=== PATIENT | female | born 1980 | race Caucasian/White ===

== ENCOUNTER 2017-04-20 07:52 | Emergency (ER) | payer SELFPAY ==
[~2017-04-20] VITALS: Ht 177.8 cm; Wt 145.1 kg
[~2017-04-20 07:52] MED LIST: CITA20TA9 PO; DICY20TA30 PO; HYDR-971 PO; IBUP200T43 PO; LAMO150T3 PO; LEVO50TA PO; LORA5SOL49 PO; MESA0.372 PO; OMEP20CA5 PO; OXCA300T3 PO; OXYC1TAB8 PO; PHEN37.599 PO; PREG75CA PO; TIZA4TAB PO; flexeril; hctz; methadone PO; triliptal
[2017-04-20 08:36] LABS: BACTERIA,URINE FEW /HPF (0-FEW); BILIRUBIN,URINE NEG (NEG); CLARITY,URINE CLOUDY; COLOR,URINE YELLOW; GLUCOSE,URINE NEG (NEG); NITRITE,URINE NEG (NEG); RBC,URINE 0 /HPF (0-2); UROBILINOGEN,URINE 0.2 mg/dL (0.2 mg/dL)
[2017-04-20 08:37] LABS: SQUAMOUS EPITHELIAL CELL,UR MOD /LPF
--- NOTE | 2017-04-20 08:37 | PHYS DOC ---
Past History Past Medical History: Arthritis, Bipolar, Fibromyalgia, Hypertension, Hypothyroid, P.U.D Additional Past Medical Histor: Umbilical hernia-(07/16/2013.) Cartilage removed from L Knee -02/2006. Past Surgical History: Cholecystectomy, Tonsillectomy, Other Additional Past Surgical Histo: Umbilical hernia repair 07/16/2013. Smoking: Quit Greater Than 1 Year Alcohol Use: Rarely Drug Use: None Adult General Chief Complaint Chief Complaint: PAIN ON URINATION HPI HPI Patient is a 36 year old F who presents with urinary frequency and mild lower abdominal discomfort. She states that her symptoms started about 4 weeks ago. She did take a few days of an antibiotic she had left over, she believes it was Cipro. She feels that this did improve her symptoms mildly however they returned. She states the her lower abdominal discomfort is a burning that seems to be present mostly on the outside. She feels that her symptoms are better after she urinates. She denies discharge for rash. She does have a history of GI related problems for which she has been followed by a seam checker. She did have a colonoscopy recently which revealed diverticula. Review of Systems Review of Systems Constitutional: Denies fever or chills [] Eyes: Denies change in visual acuity, redness, or eye pain [] HENT: Denies nasal congestion or sore throat [] Respiratory: Denies cough or shortness of breath [] Cardiovascular: No additional information not addressed in HPI [] GI: Denies abdominal pain, nausea, vomiting, bloody stools or diarrhea [] no focal abdominal pain. : Negative except history of present illness Musculoskeletal: Denies back pain or joint pain [] Integument: Denies rash or skin lesions [] Neurologic: Denies headache, focal weakness or sensory changes [] Endocrine: Denies polyuria or polydipsia [] Family History Family History Noncontributory Current Medications Current Medications Medications reviewed Allergies Allergies Allergies Coded Allergies Type Severity Reaction Last Updated Verified clarithromycin Allergy Mild rash 03/09/15 Yes latex Allergy Mild rash 03/09/15 Yes sulfamethoxazole Allergy Mild rash 03/09/15 Yes tobramycin Allergy Mild unknown 03/09/15 Yes trimethoprim Allergy Mild rash 03/09/15 Yes promethazine HCl Adverse Reaction Mild nausea/vomiting 03/09/15 Yes NSAIDS (Non-Steroidal Anti-Inflamma Adverse Reaction Unknown 12/01/15 Yes Physical Exam Physical Exam Constitutional: Well developed, well nourished, no acute distress, non-toxic appearance. [] HENT: Normocephalic, atraumatic, bilateral external ears normal, oropharynx moist, no oral exudates, Eyes: PERRLA, EOMI, conjunctiva normal, no discharge. [] Neck: Normal range of motion, no tenderness, supple, no stridor. [] Cardiovascular:Heart rate regular rhythm, no murmur [] Lungs & Thorax: Bilateral breath sounds clear to auscultation [] Abdomen: Bowel sounds normal, soft, no masses, no pulsatile masses. [] No abdominal pain with deep palpation Skin: Warm, dry, no erythema, no rash. [] Extremities: No tenderness, no cyanosis, no clubbing, ROM intact, no edema. [] Neurologic: Alert and oriented X 3, normal motor function, normal sensory function, no focal deficits noted. [] Psychologic: Affect normal, judgement normal, mood normal. [] Current Patient Data Vital Signs Normal vital signs. Please refer to nursing documentation Course & Med Decision Making Course & Med Decision Making Pertinent Labs and Imaging studies reviewed. (See chart for details) Labs and imaging were declined. The risk of abscess or other medical condition that would be identified using labs and imaging was discussed. Risk of and /or permanent disability was discussed. Belia verbalized understanding of these risks and continued to decline further testing. Interaction of Cipro and levothyroxine was discussed with pharmacist and considered to be a minimal risk. The treatment was considered to be necessary as the most likely diagnosis is diverticulitis. Dragon Disclaimer Dragon Disclaimer This chart was dictated in whole or in part using Voice Recognition software in a busy, high-work load, and often noisy Emergency Department environment. It may contain unintended and wholly unrecognized errors or omissions. Departure Departure: Impression: Primary Impression: Diverticulitis Disposition: 01 HOME, SELF-CARE Condition: STABLE Referrals: ALEJANDRA STRINGER MD (PCP) Patient Instructions: Diverticulitis Additional Instructions: Belia was seen in the emergency room for urinary frequency and lower abdominal discomfort. No emergency medical condition was found on history or physical exam. Her symptoms are most consistent with diverticulitis, given her history of diverticulosis. She was started on oral antibiotics and advised to return to the emergency room as soon as possible if she develops new or worsening symptoms. She was advised to follow-up with her primary care doctor or GI doctor in the next 7-10 days for further management Scripts Metronidazole (FLAGYL) 500 Mg Tablet 500 MG PO Q8HRS for 7 Days, #21 TAB Prov: GURMEET MURRELL MD 04/20/17 Ciprofloxacin Hcl (CIPRO) 500 Mg Tablet 1 TAB PO BID for 7 Days, #14 TAB Prov: GURMEET MURRELL MD 04/20/17 Problem Qualifiers Primary Impression: Diverticulitis Diverticulitis site: unspecified part of intestinal tract Diverticulitis bleeding: without bleeding Diverticulitis complication: unspecified complication status Qualified Codes: K57.92 - Diverticulitis of intestine, part unspecified, without perforation or abscess without bleeding GURMEET MURRELL MD Apr 20, 2017 08:37
[2017-04-20] MEDS ORDERED: CIPR500T94 PO (09:06)
[2017-04-20] MEDS ORDERED: METR500T PO (09:06)
[2017-04-20 09:28] VITALS: BP 173/106
[2017-04-20] MEDS ORDERED: CIPROFLOXACIN HCL 500 MG TABLET PO ONE (09:30)
[2017-04-20] MEDS ORDERED: metroNIDAZOLE 500 MG TABLET PO ONE (09:30)
== END 2017-04-20 09:32 | disposition home or self-care (01) ==
LOC: ER 07:52
DX: K57.92 Diverticulitis of intestine, part unspecified, without perforation or abscess without bleeding (principal); E03.9 Hypothyroidism, unspecified; I10 Essential (primary) hypertension; M79.7 Fibromyalgia; Z87.11 Personal history of peptic ulcer disease; Z90.49 Acquired absence of other specified parts of digestive tract; Z87.891 Personal history of nicotine dependence; Z88.8 Allergy status to other drugs, medicaments and biological substances; Z88.6 Allergy status to analgesic agent; Z88.1 Allergy status to other antibiotic agents; Z91.040 Latex allergy status
CPT/HCPCS: 81001; 81025; 87086; 99284

== ENCOUNTER 2017-05-03 10:52 | Emergency (ER) | payer SELFPAY ==
[~2017-05-03] VITALS: Ht 175.3 cm; Wt 90.7 kg
[~2017-05-03 10:52] MED LIST changes: +CIPR500T94 PO; +METR500T PO
[2017-05-03 11:40] LABS: BACTERIA,URINE 0 /HPF (0-FEW); BILIRUBIN,URINE NEG (NEG); CLARITY,URINE CLEAR; COLOR,URINE YELLOW; GLUCOSE,URINE NEG (NEG); NITRITE,URINE NEG (NEG); RBC,URINE RARE /HPF (0-2); SQUAMOUS EPITHELIAL CELL,UR FEW /LPF; UROBILINOGEN,URINE 0.2 mg/dL (0.2 mg/dL); WBC,URINE RARE /HPF (0-4)
[2017-05-03 12:24] LABS: BASO # 0.1 x10^3/uL (0.0-0.2); BASO % 1 % (0-3); EOS # 0.2 x10^3/uL (0.0-0.7); EOS % 2 % (0-3); HEMATOCRIT 44.3 % (36.0-47.0); HEMOGLOBIN 14.9 g/dL (12.0-15.5); LYMPH # 2.1 x10^3/uL (1.0-4.8); LYMPH % 25 % (24-48); MEAN CORPUSCULAR HEMOGLOBIN 29 pg (25-35); MEAN CORPUSCULAR HGB CONC 34 g/dL (31-37); MEAN CORPUSCULAR VOLUME 87 fL (79-100); MONO # 0.3 x10^3/uL (0.0-1.1); MONO % 4 % (0-9); NEUT % 69 % (31-73); PLATELET COUNT 202 x10^3/uL (140-400); RED BLOOD COUNT 5.08 x10^6/uL (3.50-5.40); RED CELL DISTRIBUTION WIDTH 14.7 % (11.5-14.5); WHITE BLOOD COUNT 8.7 x10^3/uL (4.0-11.0)
[2017-05-03 12:33] LABS: C REACTIVE PROTEIN 19.3 mg/L (0-3.3); CALCIUM 9.1 mg/dL (8.5-10.1); CREATININE 0.8 mg/dL (0.6-1.0); GFR 80.7; POTASSIUM 3.7 mmol/L (3.5-5.1)
[2017-05-03] MEDS ORDERED: HYDR-971 PO (12:49)
[2017-05-03] MEDS ORDERED: PRED20TA PO (12:49)
--- NOTE | 2017-05-03 12:55 | PHYS DOC ---
General Chief Complaint: right lateral hip skin pain Stated Complaint: ABDOMINAL PAIN Time Seen by MD: 11:40 Source: patient Exam Limitations: no limitations Problems: History of Present Illness Initial Comments Patient is a 36-year-old female who comes to the ED complaining of right lateral hip discomfort. Patient states that occasionally she can't severe discomfort which lasts only a few seconds located at her bilateral right hip. Patient states that there is a problem with her cold and, when asked where her discomfort is she points to her right trochanteric bursa region. She states that pain is sharp and stabbing the , severe when it is affecting her however denies any pain in the emergency department. No urine or bowel symptoms, patient states she cannot reproduce this discomfort. The patient is cooperative, she has somewhat negative and that has a reason why each differential diagnosis component is wrong. Her ED vitals are stable she was recently treated for diverticulitis with Cipro and Flagyl and states those symptoms have resolved. Asymptomatic in the ED currently Onset: other Severity: severe Pain/Injury Location: right hip Method of Injury: unknown Modifying Factors: improves with other Allergies: Coded Allergies: clarithromycin (Verified Allergy, Mild, rash, 03/09/15) latex (Verified Allergy, Mild, rash, 03/09/15) sulfamethoxazole (Verified Allergy, Mild, rash, 03/09/15) tobramycin (Verified Allergy, Mild, unknown, 03/09/15) Opthalmic trimethoprim (Verified Allergy, Mild, rash, 03/09/15) promethazine HCl (Verified Adverse Reaction, Mild, nausea/vomiting, ) NSAIDS (Non-Steroidal Anti-Inflamma (Verified Adverse Reaction, Unknown, ) conflicts with apriso Past Medical History Medical History: other (asthma, bipolar disorder, hypertension, hypothyroidism , peptic ulcer disease) Surgical History: noncontributory (umbilical herniorrhaphy, left knee, cholecystectomy, tonsillectomy) Social History Smoker: quit greater than 1 year Alcohol: none Drugs: none Review of Systems Constitutional: denies chills, denies fever Respiratory: denies cough, denies shortness of breath Cardiovascular: denies chest pain, denies palpitations Gastrointestinal: see HPI Genitourinary: denies dysuria, denies frequency, denies hematuria Musculoskeletal: see HPI, denies back pain, denies joint pain, denies joint swelling, denies muscle pain, denies muscle stiffness, denies neck pain Psychiatric/Neurological: see HPI, denies headache, denies numbness, denies paresthesia Physical Exam General Appearance: no apparent distress, obese HEENT: normal ENT inspection Neck: non-tender, supple Cardiovascular/Respiratory: normal peripheral pulses, normal breath sounds Gastrointestinal: non-tender, no organomegaly Back: normal inspection, no CVA tenderness, no vertebral tenderness Hips: left hip non-tender, bilateral hip normal inspection, bilateral hip normal range of motion, bilateral hip no evidence of injury, right hip other ( tenderness elicited with palpation of the right trochanteric bursa, this is a different pain related to the patient and her chief complaint.) Neurologic/Tendon: normal sensation, normal motor functions, normal tendon functions, responds to pain, no evidence tendon injury Psychiatric: alert, oriented x 3 Skin: normal color, warm/dry Orders, Labs, Meds CRP elevated otherwise labs unremarkable. Pt refuses hip films I discussed the treatment plan with the patient at length she did express understanding. Prior to discharge she confided to ED staff that she had elevations of her CRP in the past similar to today but always chose not to follow-up as an outpatient. Departure Time of Disposition: 12:50 Disposition: 01 HOME, SELF-CARE Diagnosis: intermittent right lateral hip pain, elev CRP Condition: GOOD Patient Instructions: C-Reactive Protein Test (CRP) Additional Instructions: As discussed your symptoms and labs are consistent with an inflammatory process. Heating pad to painful areas 20 minutes 4-6 times daily followed by gentle stretching. [id number] Tylenol for baseline discomfort. Prescription: Prednisone 20 mg #10, Columbia 5 mg #10 Take Columbia with food to avoid nausea and vomiting. Increase fluid intake and take [id number] stool softeners to avoid constipation. Follow-up with your doctor in 3-5 days for recheck of symptoms and further blood work as needed. Return to ED with new or changing symptoms. RYLEY RODRIGUEZ DO May 03, 2017 12:55
[2017-05-03 13:10] VITALS: BP 140/90
== END 2017-05-03 13:20 | disposition home or self-care (01) ==
LOC: ER 10:52
DX: M25.551 Pain in right hip (principal); M25.552 Pain in left hip; R79.82 Elevated C-reactive protein (CRP); J45.909 Unspecified asthma, uncomplicated; I10 Essential (primary) hypertension; E03.9 Hypothyroidism, unspecified; F31.9 Bipolar disorder, unspecified; Z87.11 Personal history of peptic ulcer disease; Z87.891 Personal history of nicotine dependence; Z88.8 Allergy status to other drugs, medicaments and biological substances; Z88.6 Allergy status to analgesic agent; Z88.1 Allergy status to other antibiotic agents; Z91.040 Latex allergy status
CPT/HCPCS: 36415; 80048; 81001; 81025; 85025; 86140; 99284

== ENCOUNTER 2017-09-22 14:08 | Emergency (ER) | payer OTHER ==
[~2017-09-22] VITALS: Ht 175.3 cm; Wt 151.1 kg
[~2017-09-22 14:08] MED LIST changes: -IBUP200T43 PO; +IBUP200T44 PO; +PRED20TA PO
[2017-09-22] MEDS ORDERED: IV NORMAL SALINE 1,000ML 1,000 ML IV ONE (14:45)
--- NOTE | 2017-09-22 14:45 | ED.ADGEN ---
Past History Past Medical History: Anxiety, Bipolar, Diverticulitis, Fibromyalgia, Hypertension, Hypothyroid Additional Past Medical Histor: Umbilical hernia-(07/16/2013.) Cartilage removed from L Knee -02/2006. Past Surgical History: No Surgical History, Cholecystectomy, Tonsillectomy Additional Past Surgical Histo: Umbilical hernia repair 07/16/2013. Smoking: Quit Greater Than 1 Year Alcohol Use: Occasionally Drug Use: None Adult General Chief Complaint Chief Complaint headache, body aches HPI HPI Patient is a 37 year old female who presents with headache for one month, constant nature, frontal, followed by face pain, prescribed amoxicillin on the of this month for resumed sinus infection. Patient states she hasn't had any sinus drainage. Now she is having generalized body aches, hasn't attempted Tylenol or ibuprofen. She does have migraine medications, she is unsure if this is a migraine. She's been seen by Dr. Thornton, her primary care physician. She's been told she has a autoimmune disorder but this was diagnosed in an emergency room and she hasn't seen a supervisor sample. Review of Systems Review of Systems Constitutional: Denies fever or chills [] Eyes: Denies change in visual acuity, redness, or eye pain [] HENT: Denies nasal congestion or sore throat [] Respiratory: Denies cough or shortness of breath [] Cardiovascular: Denies chest pain GI: Denies abdominal pain, nausea, vomiting, bloody stools or diarrhea [] : Denies dysuria or hematuria [] Musculoskeletal: Reports body aches and back pain Integument: Denies rash or skin lesions [] Neurologic: Reports headache, denies focal weakness or sensory changes [] Current Medications Current Medications Current Medications Medications (Trade) Dose Ordered Sig/Reza Start Time Stop Time Status Last Admin Dose Admin Diphenhydramine HCl (Benadryl) 25 mg 1X ONCE 09/22/17 15:00 09/22/17 15:01 DC 09/22/17 15:41 25 MG Ketorolac Tromethamine (Toradol) 30 mg 1X ONCE 09/22/17 15:00 09/22/17 15:01 DC 09/22/17 15:41 30 MG Prochlorperazine Edisylate (Compazine) 10 mg 1X ONCE 09/22/17 15:00 09/22/17 15:01 DC 09/22/17 15:40 10 MG Sodium Chloride 1,000 ml @ 1,000 mls/hr 1X ONCE 09/22/17 14:45 09/22/17 15:44 DC 09/22/17 15:41 1,000 MLS/HR Allergies Allergies Allergies Coded Allergies Type Severity Reaction Last Updated Verified clarithromycin Allergy Mild rash 03/09/15 Yes latex Allergy Mild rash 03/09/15 Yes sulfamethoxazole Allergy Mild rash 03/09/15 Yes tobramycin Allergy Mild unknown 03/09/15 Yes trimethoprim Allergy Mild rash 03/09/15 Yes promethazine HCl Adverse Reaction Mild nausea/vomiting 03/09/15 Yes NSAIDS (Non-Steroidal Anti-Inflamma Adverse Reaction Unknown 12/01/15 Yes Physical Exam Physical Exam Constitutional: Well developed, well nourished, obese, ill appearing but non- toxic appearance. [] HENT: Normocephalic, atraumatic, bilateral external ears normal, oropharynx moist, no oral exudates, nose normal. [] Eyes: PERRLA, EOMI, conjunctiva normal, no discharge. [] Neck: Normal range of motion, no tenderness, supple, no stridor. [] Cardiovascular:Heart rate regular with regular rhythm, no murmur [] Lungs & Thorax: Bilateral breath sounds clear to auscultation, no wheeze or crackles Abdomen: Bowel sounds normal, soft, no tenderness, no masses, no pulsatile masses. [] Skin: Warm, dry, no erythema, no rash. [] Back: No tenderness, no CVA tenderness. [] Extremities: No tenderness, no cyanosis, no clubbing, ROM intact, no edema. [] Neurologic: Alert and oriented X 3, normal motor function, normal sensory function, no focal deficits noted. Cranial nerves II through XII intact Psychologic: Affect normal, judgement normal, mood normal. [] Current Patient Data Vital Signs Vital Signs Date Time Temp Pulse Resp B/P (MAP) Pulse Ox O2 Delivery O2 Flow Rate FiO2 09/22/17 15:47 70 18 117/64 (81) 100 Room Air 09/22/17 14:22 97.8 Lab Results Laboratory Tests Test 09/22/17 14:46 White Blood Count 7.3 x10^3/uL (4.0-11.0) Red Blood Count 5.50 x10^6/uL (3.50-5.40) H Hemoglobin 16.3 g/dL (12.0-15.5) H Hematocrit 47.8 % (36.0-47.0) H Mean Corpuscular Volume 87 fL (79-100) Mean Corpuscular Hemoglobin 30 pg (25-35) Mean Corpuscular Hemoglobin Concent 34 g/dL (31-37) Red Cell Distribution Width 14.9 % (11.5-14.5) H Platelet Count 196 x10^3/uL (140-400) Neutrophils (%) (Auto) 64 % (31-73) Lymphocytes (%) (Auto) 30 % (24-48) Monocytes (%) (Auto) 3 % (0-9) Eosinophils (%) (Auto) 1 % (0-3) Basophils (%) (Auto) 1 % (0-3) Neutrophils # (Auto) 4.7 x10^3uL (1.8-7.7) Lymphocytes # (Auto) 2.2 x10^3/uL (1.0-4.8) Monocytes # (Auto) 0.3 x10^3/uL (0.0-1.1) Eosinophils # (Auto) 0.1 x10^3/uL (0.0-0.7) Basophils # (Auto) 0.1 x10^3/uL (0.0-0.2) Sodium Level 139 mmol/L (136-145) Potassium Level 3.5 mmol/L (3.5-5.1) Chloride Level 101 mmol/L (98-107) Carbon Dioxide Level 30 mmol/L (21-32) Anion Gap 8 (6-14) Blood Urea Nitrogen 15 mg/dL (7-20) Creatinine 0.8 mg/dL (0.6-1.0) Estimated GFR (Cockcroft-Gault) 80.3 Glucose Level 91 mg/dL (70-99) Calcium Level 9.6 mg/dL (8.5-10.1) EKG EKG [] Radiology/Procedures Radiology/Procedures CT head:CT of the head without contrast, 09/22/2017: History: Headache Comparison is made to a study from 03/09/2015. The ventricles are within normal limits in size. There is no shift of the midline structures. There is no evidence of acute intracranial hemorrhage or mass effect. IMPRESSION: No acute intracranial abnormality is detected. Course & Med Decision Making Course & Med Decision Making Pertinent Labs and Imaging studies reviewed. (See chart for details) IV established, UA and UCG ordered along with IV fluids, Benadryl, Compazine and Toradol. CT head ordered due to the patient's ongoing headache ct negative, BEGUM improved, recommended completing antibiotics and f/u with Dr. Thornton. Pt agreeable and says she is not driving home, mom to come and get her. Final Impression Final Impression Headache Myalgias[] Problems: Dragon Disclaimer Dragon Disclaimer This electronic medical record was generated, in whole or in part, using a voice recognition dictation system. MACARENA CALDERON MD Sep 22, 2017 14:45
[2017-09-22 14:59] LABS: BASO # 0.1 x10^3/uL (0.0-0.2); BASO % 1 % (0-3); EOS # 0.1 x10^3/uL (0.0-0.7); EOS % 1 % (0-3); HEMATOCRIT 47.8 % (36.0-47.0); HEMOGLOBIN 16.3 g/dL (12.0-15.5); LYMPH # 2.2 x10^3/uL (1.0-4.8); LYMPH % 30 % (24-48); MEAN CORPUSCULAR HEMOGLOBIN 30 pg (25-35); MEAN CORPUSCULAR HGB CONC 34 g/dL (31-37); MEAN CORPUSCULAR VOLUME 87 fL (79-100); MONO # 0.3 x10^3/uL (0.0-1.1); MONO % 3 % (0-9); NEUT # 4.7 x10^3uL (1.8-7.7); NEUT % 64 % (31-73); PLATELET COUNT 196 x10^3/uL (140-400); RED CELL DISTRIBUTION WIDTH 14.9 % (11.5-14.5); WHITE BLOOD COUNT 7.3 x10^3/uL (4.0-11.0)
[2017-09-22] MEDS ORDERED: PROCHLORPERAZINE 10 MG/2 ML VIAL. IV ONE (15:00)
[2017-09-22] MEDS ORDERED: diphenhydrAMINE 50 MG/ML VIAL IVP ONE (15:00)
[2017-09-22] MEDS ORDERED: KETOROLAC 30 MG/ML VIAL. IV ONE (15:00)
--- NOTE | 2017-09-22 15:00 | RAD ---
CT of the head without contrast, 09/22/2017: History: Headache Comparison is made to a study from 03/09/2015. The ventricles are within normal limits in size. There is no shift of the midline structures. There is no evidence of acute intracranial hemorrhage or mass effect. IMPRESSION: No acute intracranial abnormality is detected. PQRS Compliance Statement: One or more of the following individualized dose reduction techniques were utilized for this examination: 1. Automated exposure control 2. Adjustment of the mA and/or kV according to patient size 3. Use of iterative reconstruction technique
[2017-09-22 15:04] LABS: CALCIUM 9.6 mg/dL (8.5-10.1); CREATININE 0.8 mg/dL (0.6-1.0); GFR 80.3; POTASSIUM 3.5 mmol/L (3.5-5.1)
[2017-09-22 15:47] VITALS: BP 117/64
== END 2017-09-22 16:52 | disposition home or self-care (01) ==
LOC: ER 14:08
DX: R51 Headache (principal); E03.9 Hypothyroidism, unspecified; F41.9 Anxiety disorder, unspecified; I10 Essential (primary) hypertension; M79.7 Fibromyalgia; Z87.891 Personal history of nicotine dependence; Z88.8 Allergy status to other drugs, medicaments and biological substances; Z88.6 Allergy status to analgesic agent; Z88.1 Allergy status to other antibiotic agents; Z91.040 Latex allergy status
CPT/HCPCS: 36415; 70450; 80048; 85025; 96361; 96374; 96375; 99285; J0780; J1200; J1885; J7030

== ENCOUNTER 2017-11-29 12:51 | Emergency (ER) | payer OTHER ==
[~2017-11-29] VITALS: Ht 180.3 cm; Wt 139.7 kg
[2017-11-29] MEDS ORDERED: GUAI1TBM10 PO (13:40)
[2017-11-29] MEDS ORDERED: DIPH25CA58 PO (13:40)
[2017-11-29] MEDS ORDERED: DOXY100C14 PO (13:40)
[2017-11-29] MEDS ORDERED: OXYM30SP NS (13:40)
--- NOTE | 2017-11-29 13:40 | PHYS DOC ---
Past History Past Medical History: Anxiety, Bipolar, Diverticulitis, Fibromyalgia, Hypertension, Hypothyroid, Other (current epistaxis) Additional Past Medical Histor: Umbilical hernia-(07/16/2013.) Cartilage removed from L Knee -02/2006. Past Surgical History: No Surgical History, Cholecystectomy, Tonsillectomy Additional Past Surgical Histo: Umbilical hernia repair 07/16/2013. Smoking: Quit Greater Than 1 Year Alcohol Use: Occasionally Drug Use: None Adult General Chief Complaint Chief Complaint: NOSEBLEED HPI HPI I have a 37-year-old female with history of bipolar disorder and anxiety hypothyroidism who presents with intermittent epistaxis in your leg since that began 3 days ago. Patient is noted increased production of cough, mild shortness breath with this cough without chest pain she has noted increased nasal congestion is clear in nature now progressively cloudy and now with epistaxis primarily of her right nose. She denies any fevers or chills, she is tried use [id number] medication with limited success of treating her symptoms. She has recurrent issues of the same problem in the past. Fevers not been documented at home although she claims she has had one. She has had no sick contacts, no recent travel outside the country and no recent antibiotic use. Patient is not tried use direct pressure separate epistaxis although it is intermittent she said this is not a new symptom or new problem. She has a question loss of an autoimmune disorder she is being followed for by senior client advisor. In her history she also provided to a she has a history of fibromyalgia and bipolar disorder which she is on her medications that are been unchanged Review of Systems Review of Systems Constitutional: Positive for subjective fevers and chills but nothing documented Eyes: Denies change in visual acuity, redness, or eye pain [] HENT: Positive for nasal congestion and green in color with a sore throat without change in voice Respiratory: Patient does have a productive cough without significant shortness of breath[] Cardiovascular: No additional information not addressed in HPI [] GI: Denies abdominal pain, nausea, vomiting, bloody stools or diarrhea [] : Denies dysuria or hematuria [] Musculoskeletal: Denies back pain or joint pain [] Integument: Denies rash or skin lesions [] Neurologic: Denies headache, focal weakness or sensory changes [] Endocrine: Denies polyuria or polydipsia [] All other systems were reviewed and found to be within normal limits, except as documented in this note. Allergies Allergies Allergies Coded Allergies Type Severity Reaction Last Updated Verified clarithromycin Allergy Mild rash 03/09/15 Yes latex Allergy Mild rash 03/09/15 Yes sulfamethoxazole Allergy Mild rash 03/09/15 Yes tobramycin Allergy Mild unknown 03/09/15 Yes trimethoprim Allergy Mild rash 03/09/15 Yes promethazine HCl Adverse Reaction Mild nausea/vomiting 03/09/15 Yes NSAIDS (Non-Steroidal Anti-Inflamma Adverse Reaction Unknown 12/01/15 Yes Physical Exam Physical Exam Other vital signs recorded on the chart patient noted to be mildly hypertensive which is chronic for patient may also be associated with stress Constitutional: Well developed, well nourished, patient is obese nontoxic in appearance HENT: Normocephalic, atraumatic, bilateral external ears normal, oropharynx moist mild erythema no tonsillar hypertrophy no erythema, no oral exudates, she has right-sided epistaxis is well-controlled with mild edema of the nearest no facial tenderness to palpation or edema. There is green and discharge from the right naris.] Eyes: PERRLA, EOMI, conjunctiva normal, no discharge. [] Neck: Normal range of motion, no tenderness, supple, no stridor. No anterior lymphadenopathy [] Cardiovascular:Heart rate regular rhythm, no murmur [] Lungs & Thorax: Bilateral breath sounds clear to auscultation [] Skin: Warm, dry, no erythema, no rash. [] Neurologic: Alert and oriented X 3, normal motor function, normal sensory function, no focal deficits noted. [] Psychologic: She is anxious but appropriate. [] EKG EKG [] Radiology/Procedures Radiology/Procedures [] Course & Med Decision Making Course & Med Decision Making Pertinent Labs and Imaging studies reviewed. (See chart for details) []Patient is a pleasant 37-year-old female with a history of URI-like symptoms productive cough fevers and chills to quit home with epistaxis in the right near. She's had this epistaxis in the past and reviewed her approach to treatment we talked about direct pressure to help control her symptoms. Given the duration of her symptoms fevers productive cough and chills I'll place her on antibiotics doxycycline 100 mg by mouth twice a day plus supportive medications to help clear this epistaxis up Afrin nasal sprain direct pressure as well as provide her and mucolytic like guaifenesin and extremity ORIF and pseudoephedrine and Tylenol. Impression: Sinus infection, URI-like symptoms, epistaxis discharge: I've spoken with the patient and/or caregivers. I've explained the patient's condition, diagnosis and treatment plan based on information available to me at this time. I've answered the patient's and/or caregivers questions and addressed any concerns. The patient and/or caregivers have a good understanding the patient's diagnosis, condition and treatment plan as can be expected at this point. Vital signs have been stabilized. The patient's condition is stable for discharge from the emergency department. The patient will pursue further outpatient evaluation with her primary care provider or other designated consulting physician as outlined in the discharge instructions. Patient and/or caregivers are agreeable to this plan of care and follow-up instructions have been explained in detail. The patient and/or caregivers have received these instructions in written format and expressed understanding of these discharge instructions. The patient and her caregivers are aware that if any significant change in condition or worsening of symptoms should prompt him to immediately return to this of the closest emergency department. If an emergent department is not readily available I would encourage him to call 911. [place] Disclaimer Dragon Disclaimer This electronic medical record was generated, in whole or in part, using a voice recognition dictation system. Departure Departure: Impression: Primary Impression: Upper respiratory infection Additional Impressions: Epistaxis Sinusitis Disposition: 01 HOME, SELF-CARE Condition: STABLE Referrals: ALEJANDRA STRINGER MD (PCP) Patient Instructions: Upper Respiratory Infection, Adult Additional Instructions: discharge: I've spoken with the patient and/or caregivers. I've explained the patient's condition, diagnosis and treatment plan based on information available to me at this time. I've answered the patient's and/or caregivers questions and addressed any concerns. The patient and/or caregivers have a good understanding the patient's diagnosis, condition and treatment plan as can be expected at this point. Vital signs have been stabilized. The patient's condition is stable for discharge from the emergency department. The patient will pursue further outpatient evaluation with her primary care provider or other designated consulting physician as outlined in the discharge instructions. Patient and/or caregivers are agreeable to this plan of care and follow-up instructions have been explained in detail. The patient and/or caregivers have received these instructions in written format and expressed understanding of these discharge instructions. The patient and her caregivers are aware that if any significant change in condition or worsening of symptoms should prompt him to immediately return to this of the closest emergency department. If an emergent department is not readily available I would encourage him to call 911. Scripts Diphenhydramine Hcl (BENADRYL) 25 Mg Capsule 25 MG PO QID for 7 Days, #28 CAP Prov: LIVAN QUARLES MD 11/29/17 Guaifenesin/Dextromethorphan (MUCINEX DM ER 1,200-60 MG TAB) 1 Each Tbmp.12hr 1 TAB PO BID, #20 TAB 1 Refill Prov: LIVAN QUARLES MD 11/29/17 Oxymetazoline Hcl (AFRIN) 30 Ml [place] 30 ML NS QID for 3 Days, SPRAY Prov: LIVAN QUARLES MD 11/29/17 Doxycycline Monohydrate (DOXYCYCLINE MONOHYDRATE) 100 Mg Capsule 1 CAP PO BID, #20 CAP Prov: LIVAN QUARLES MD 11/29/17 Problem Qualifiers LIVAN QUARLES MD Nov 29, 2017 13:40
[2017-11-29 13:55] VITALS: BP 139/87
== END 2017-11-29 13:55 | disposition home or self-care (01) ==
LOC: ER 12:51
DX: R04.0 Epistaxis (principal); J06.9 Acute upper respiratory infection, unspecified; J32.9 Chronic sinusitis, unspecified; E03.9 Hypothyroidism, unspecified; F31.9 Bipolar disorder, unspecified; F41.9 Anxiety disorder, unspecified; I10 Essential (primary) hypertension; M79.7 Fibromyalgia; Z87.891 Personal history of nicotine dependence; Z88.8 Allergy status to other drugs, medicaments and biological substances; Z88.6 Allergy status to analgesic agent; Z88.1 Allergy status to other antibiotic agents; Z91.040 Latex allergy status; Z88.2 Allergy status to sulfonamides
CPT/HCPCS: 99281

== ENCOUNTER 2018-05-31 10:33 | Emergency (ER) | payer OTHER ==
[~2018-05-31] VITALS: Ht 180.3 cm; Wt 137.9 kg
[~2018-05-31 10:33] MED LIST changes: +DIPH25CA58 PO; +DOXY100C14 PO; +GUAI1TBM10 PO; +OXYM30SP NS
[2018-05-31] MEDS: MORPHINE SULFATE 4 MG/ML DISP.SYRIN. IV ONE (11:10)
[2018-05-31] MEDS: IV NORMAL SALINE 1,000ML 1,000 ML IV SCH (11:11)
[2018-05-31] MEDS: IOHEXOL 300 MG/ML 75 ML VIAL. IV ONE (11:29)
[2018-05-31 11:30] LABS: BASO # 0.1 x10^3/uL (0.0-0.2); BASO % 1 % (0-3); EOS # 0.2 x10^3/uL (0.0-0.7); EOS % 2 % (0-3); HEMATOCRIT 42.9 % (36.0-47.0); HEMOGLOBIN 14.8 g/dL (12.0-15.5); LYMPH % 25 % (24-48); MEAN CORPUSCULAR HEMOGLOBIN 30 pg (25-35); MEAN CORPUSCULAR HGB CONC 34 g/dL (31-37); MEAN CORPUSCULAR VOLUME 88 fL (79-100); MONO # 0.3 x10^3/uL (0.0-1.1); MONO % 4 % (0-9); NEUT # 5.3 x10^3uL (1.8-7.7); NEUT % 68 % (31-73); PLATELET COUNT 176 x10^3/uL (140-400); RED BLOOD COUNT 4.87 x10^6/uL (3.50-5.40); RED CELL DISTRIBUTION WIDTH 13.8 % (11.5-14.5); WHITE BLOOD COUNT 7.8 x10^3/uL (4.0-11.0)
[2018-05-31 11:41] LABS: ALBUMIN 3.5 g/dL (3.4-5.0); ALBUMIN/GLOBULIN RATIO 0.9 (1.0-1.7); CALCIUM 8.9 mg/dL (8.5-10.1); CREATININE 0.8 mg/dL (0.6-1.0); GFR 80.3; POTASSIUM 3.8 mmol/L (3.5-5.1); TOTAL BILIRUBIN 0.3 mg/dL (0.2-1.0); TOTAL PROTEIN 7.2 g/dL (6.4-8.2)
[2018-05-31 11:42] LABS: BILIRUBIN,URINE NEG (NEG); CLARITY,URINE CLOUDY; COLOR,URINE YELLOW; GLUCOSE,URINE NEG (NEG)
[2018-05-31 11:43] LABS: AMORPHOUS SEDIMENT,UR PRESENT /HPF; BACTERIA,URINE FEW /HPF (0-FEW); NITRITE,URINE NEG (NEG); RBC,URINE RARE /HPF (0-2); SQUAMOUS EPITHELIAL CELL,UR FEW /LPF; U PREG PATIENT NEGATIVE (NEG); UROBILINOGEN,URINE 0.2 mg/dL (0.2 mg/dL)
--- NOTE | 2018-05-31 11:56 | PHYS DOC ---
Past History Past Medical History: Bipolar, Diverticulitis, Hypertension, Hypothyroid Additional Past Medical Histor: Umbilical hernia-(07/16/2013.) Cartilage removed from L Knee -02/2006. Past Surgical History: Cholecystectomy, Tonsillectomy, Other Additional Past Surgical Histo: Umbilical hernia repair 07/16/2013. Smoking: Cigarettes, Quit Greater Than 1 Year Alcohol Use: None Drug Use: None Adult General Chief Complaint Chief Complaint: ABDOMINAL PAIN HPI HPI Patient is a 37 year old female who presents with complaining of abdominal pain for 2 days. Patient complaining of gradual onset of left-sided abdominal pain 3 days ago by Review of Systems Review of Systems Constitutional: Denies fever or chills [] Eyes: Denies change in visual acuity, redness, or eye pain [] HENT: Denies nasal congestion or sore throat [] Respiratory: Denies cough or shortness of breath [] Cardiovascular: No additional information not addressed in HPI [] GI: Denies abdominal pain, nausea, vomiting, bloody stools or diarrhea [] : Denies dysuria or hematuria [] Musculoskeletal: Denies back pain or joint pain [] Integument: Denies rash or skin lesions [] Neurologic: Denies headache, focal weakness or sensory changes [] Endocrine: Denies polyuria or polydipsia [] All other systems were reviewed and found to be within normal limits, except as documented in this note. Current Medications Current Medications Current Medications Medications (Trade) Dose Ordered Sig/Reza Start Time Stop Time Status Last Admin Dose Admin Iohexol (Omnipaque 300 Mg/ml) 75 ml 1X ONCE 05/31/18 11:15 05/31/18 11:16 DC 05/31/18 11:29 75 ML Morphine Sulfate (Morphine 4mg Syringe) 4 mg 1X ONCE 05/31/18 11:30 05/31/18 11:31 DC 05/31/18 11:10 4 MG Sodium Chloride 1,000 ml @ 1,000 mls/hr Q1H 05/31/18 10:56 05/31/18 11:55 05/31/18 11:11 1,000 MLS/HR Allergies Allergies Allergies Coded Allergies Type Severity Reaction Last Updated Verified clarithromycin Allergy Mild rash 03/09/15 Yes latex Allergy Mild rash 03/09/15 Yes sulfamethoxazole Allergy Mild rash 03/09/15 Yes tobramycin Allergy Mild unknown 03/09/15 Yes trimethoprim Allergy Mild rash 03/09/15 Yes promethazine HCl Adverse Reaction Mild nausea/vomiting 03/09/15 Yes NSAIDS (Non-Steroidal Anti-Inflamma Adverse Reaction Unknown 12/01/15 Yes Physical Exam Physical Exam Constitutional: Well developed, well nourished, no acute distress, non-toxic appearance. [] HENT: Normocephalic, atraumatic, bilateral external ears normal, oropharynx moist, no oral exudates, nose normal. [] Eyes: PERRLA, EOMI, conjunctiva normal, no discharge. [] Neck: Normal range of motion, no tenderness, supple, no stridor. [] Cardiovascular:Heart rate regular rhythm, no murmur [] Lungs & Thorax: Bilateral breath sounds clear to auscultation [] Abdomen: Bowel sounds normal, soft, no tenderness, no masses, no pulsatile masses. She refused rectal exam. Skin: Warm, dry, no erythema, no rash. [] Back: No tenderness, no CVA tenderness. [] Extremities: No tenderness, no cyanosis, no clubbing, ROM intact, no edema. [] Neurologic: Alert and oriented X 3, normal motor function, normal sensory function, no focal deficits noted. [] Psychologic: Affect normal, judgement normal, mood normal. [] Current Patient Data Vital Signs Vital Signs Date Time Temp Pulse Resp B/P (MAP) Pulse Ox O2 Delivery O2 Flow Rate FiO2 05/31/18 11:12 74 18 140/86 (104) 98 Room Air 05/31/18 10:42 97.7 Lab Results Laboratory Tests Test 05/31/18 11:02 05/31/18 11:06 Urine Collection Type Unknown Urine Color Yellow Urine Clarity Cloudy Urine pH 8.5 Urine Specific [place] 1.020 Urine Protein Neg (NEG-TRACE) Urine Glucose (UA) Neg mg/dL (NEG) Urine Ketones (Stick) Neg mg/dL (NEG) Urine Blood Neg (NEG) Urine Nitrite Neg (NEG) Urine Bilirubin Neg (NEG) Urine Urobilinogen Dipstick 0.2 mg/dL (0.2 mg/dL) Urine Leukocyte Esterase Neg (NEG) Urine RBC Rare /HPF (0-2) Urine WBC 1-4 /HPF (0-4) Urine Squamous Epithelial Cells Few /LPF Urine Amorphous Sediment Present /HPF Urine Bacteria Few /HPF (0-FEW) Urine Test Negative (NEG) White Blood Count 7.8 x10^3/uL (4.0-11.0) Red Blood Count 4.87 x10^6/uL (3.50-5.40) Hemoglobin 14.8 g/dL (12.0-15.5) Hematocrit 42.9 % (36.0-47.0) Mean Corpuscular Volume 88 fL (79-100) Mean Corpuscular Hemoglobin 30 pg (25-35) Mean Corpuscular Hemoglobin Concent 34 g/dL (31-37) Red Cell Distribution Width 13.8 % (11.5-14.5) Platelet Count 176 x10^3/uL (140-400) Neutrophils (%) (Auto) 68 % (31-73) Lymphocytes (%) (Auto) 25 % (24-48) Monocytes (%) (Auto) 4 % (0-9) Eosinophils (%) (Auto) 2 % (0-3) Basophils (%) (Auto) 1 % (0-3) Neutrophils # (Auto) 5.3 x10^3uL (1.8-7.7) Lymphocytes # (Auto) 2.0 x10^3/uL (1.0-4.8) Monocytes # (Auto) 0.3 x10^3/uL (0.0-1.1) Eosinophils # (Auto) 0.2 x10^3/uL (0.0-0.7) Basophils # (Auto) 0.1 x10^3/uL (0.0-0.2) Sodium Level 140 mmol/L (136-145) Potassium Level 3.8 mmol/L (3.5-5.1) Chloride Level 105 mmol/L (98-107) Carbon Dioxide Level 30 mmol/L (21-32) Anion Gap 5 (6-14) L Blood Urea Nitrogen 16 mg/dL (7-20) Creatinine 0.8 mg/dL (0.6-1.0) Estimated GFR (Cockcroft-Gault) 80.3 BUN/Creatinine Ratio 20 (6-20) Glucose Level 104 mg/dL (70-99) H Calcium Level 8.9 mg/dL (8.5-10.1) Total Bilirubin 0.3 mg/dL (0.2-1.0) Aspartate Amino Transferase (AST) 19 U/L (15-37) Alanine Aminotransferase (ALT) 36 U/L (14-59) Alkaline Phosphatase 90 U/L (46-116) Total Protein 7.2 g/dL (6.4-8.2) Albumin 3.5 g/dL (3.4-5.0) Albumin/Globulin Ratio 0.9 (1.0-1.7) L Lipase 97 U/L (73-393) EKG EKG [] Radiology/Procedures Radiology/Procedures [address] [address] IMAGING REPORT Signed PATIENT: LOGAN CHOE ACCOUNT: [id number] : 1980 LOCATION: ER AGE: 37 SEX: F EXAM STATUS: REG ER ORD. PHYSICIAN: MERI MORENO MD REASON: left abdominal pain, history of diverticulitis PROCEDURE: CT ABD PELV W/ IV CONTRST ONLY CT of the abdomen and pelvis with contrast 05/31/2018 INDICATION: Lower abdominal pain x1 week. COMPARISON STUDY: CT of the abdomen and pelvis with IV contrast October 24, 2015 TECHNIQUE: Multidetector CT imaging of the abdomen and pelvis was obtained following the administration of IV contrast FINDINGS: Partially visualized lung bases demonstrate no acute abnormality. Prior cholecystectomy is noted. Liver, spleen, adrenal glands, pancreas, and bilateral kidneys demonstrate no acute abnormalities. There is no bowel obstruction. No evidence of acute inflammatory change involving the bowel is identified. The appendix is unremarkable in a Intrauterine device is in place. There is a bilobed mass in the right adnexa measuring approximately 6.4 x 3.4 x 3.2 cm. The attenuation levels are greater than would be expected for simple cyst. Findings could represent a hemorrhagic cyst or an ovarian mass. Ultrasound evaluation recommended. No free fluid or free air is seen in the abdomen or pelvis. The bladder is grossly unremarkable. No acute osseous changes are seen. IMPRESSION: 1. New right adnexal mass possibly a hemorrhagic/complex ovarian cyst versus solid ovarian mass. Pelvic ultrasound recommended for further characterization. 2. No other acute intra-abdominal abnormality is identified [address] [address] IMAGING REPORT Signed PATIENT: LOGAN CHOE ACCOUNT: [id number] : 1980 LOCATION: ER AGE: 37 SEX: F EXAM STATUS: REG ER ORD. PHYSICIAN: MERI MORENO MD REASON: right ovarian cyst in ct PROCEDURE: US PELVIS W/TV Pelvic ultrasound Clinical Indication: Pelvic pain 3 times a day. IUD placement 4 years ago.. . TRANSABDOMINAL SCAN Uterus measures about 7.5 cm longitudinal by 3.9 cm AP by 5.0 cm wide. Endometrial stripe measures 5 mm. Right ovary contains a couple of cystic-type lesions will be better characterized endovaginally. Left ovary demonstrates no obvious abnormality, measuring 2.6 cm long axis.. TRANSVAGINAL SCAN Uterus: * Size (in centimeters): 4.7 transverse by 7.6 longitudinal by 3.9 AP * Appearance: No evidence of mass. * Endometrium: 8 mm endometrial stripe thickness. Patient has an intrauterine device. Right ovary: * Size: 5.7 cm long axis. * Blood flow: Intact * Appearance: Simple appearing cyst measures 3.3 cm. Another lesion measuring 3.1 cm demonstrates low-level internal echoes, most likely a hemorrhagic or otherwise complex cyst. No significant hypervascularity. Left ovary: * Size: 2.4 cm long axis. * Blood flow: Intact * Appearance: No significant mass. Free fluid: Mild simple appearing free fluid identified in the cul-de-sac. IMPRESSION: 1. Simple appearing 3.3 cm right ovarian cyst. 2. Another right ovarian lesion measures 3.1 cm, compatible with a hemorrhagic or otherwise complex cyst. Electronically signed by: Efren Monsalve MD (05/31/2018 2:07 PM) [facility] DICTATED AND SIGNED BY: EFREN MONSALVE MD DATE: 05/31/18 1400 CC: MERI MORENO MD; ALEJANDRA STRINGER MD ~ Course & Med Decision Making Course & Med Decision Making Pertinent Labs and Imaging studies reviewed. (See chart for details) Evaluation of patient in ER showed 37-year-old female patient with complaining of left lower quadrant pain for 2 days and episodes of bloody stools that resolved today. Patient had unremarkable physical exam except for anxiety. Labs and CT of abdomen and pelvis was unremarkable except for ovarian cyst. Ultrasound showed small hemorrhagic right ovarian cyst. patient had drug- seeking behavior while she was in ER. Dragon Disclaimer Dragon Disclaimer This electronic medical record was generated, in whole or in part, using a voice recognition dictation system. Departure Departure: Impression: Primary Impression: Ruptured ovarian cyst Additional Impressions: Abdominal pain Morbid obesity Disposition: HOME, SELF-CARE (0606) Condition: IMPROVED Referrals: ALEJANDRA STRINGER MD (PCP) Patient Instructions: Abdominal Pain, Ovarian Cyst Additional Instructions: Drink plenty of liquids Follow-up with your primary care physician in 3-5 days Return to ER if not getting better Scripts Tramadol Hcl (ULTRAM) 50 Mg Tablet 50 MG PO PRN Q6HRS PRN for PAIN, #10 TAB Prov: MERI MORENO MD 05/31/18 Problem Qualifiers MERI MORENO MD May 31, 2018 11:56
--- NOTE | 2018-05-31 12:09 | RAD ---
CT of the abdomen and pelvis with contrast 05/31/2018 INDICATION: Lower abdominal pain x1 week. COMPARISON STUDY: CT of the abdomen and pelvis with IV contrast October 24, 2015 TECHNIQUE: Multidetector CT imaging of the abdomen and pelvis was obtained following the administration of IV contrast FINDINGS: Partially visualized lung bases demonstrate no acute abnormality. Prior cholecystectomy is noted. Liver, spleen, adrenal glands, pancreas, and bilateral kidneys demonstrate no acute abnormalities. There is no bowel obstruction. No evidence of acute inflammatory change involving the bowel is identified. The appendix is unremarkable in a Intrauterine device is in place. There is a bilobed mass in the right adnexa measuring approximately 6.4 x 3.4 x 3.2 cm. The attenuation levels are greater than would be expected for simple cyst. Findings could represent a hemorrhagic cyst or an ovarian mass. Ultrasound evaluation recommended. No free fluid or free air is seen in the abdomen or pelvis. The bladder is grossly unremarkable. No acute osseous changes are seen. IMPRESSION: 1. New right adnexal mass possibly a hemorrhagic/complex ovarian cyst versus solid ovarian mass. Pelvic ultrasound recommended for further characterization. 2. No other acute intra-abdominal abnormality is identified CT DOSING PQRS STATEMENT: One or more of the following individualized dose reduction techniques were utilized for this examination: 1. Automated exposure control 2. Adjustment of the mA and/or kV according to patient size 3. Use of iterative reconstruction technique Electronically signed by: Israel Russell MD (05/31/2018 12:06 PM) [id number]
[2018-05-31] MEDS: HYDROcodone/APAP 5/325MG 1 TAB TABLET PO ONE (12:21)
[2018-05-31 14:05] VITALS: BP 128/77
--- NOTE | 2018-05-31 14:10 | RAD ---
Pelvic ultrasound Clinical Indication: Pelvic pain 3 times a day. IUD placement 4 years ago.. . TRANSABDOMINAL SCAN Uterus measures about 7.5 cm longitudinal by 3.9 cm AP by 5.0 cm wide. Endometrial stripe measures 5 mm. Right ovary contains a couple of cystic-type lesions will be better characterized endovaginally. Left ovary demonstrates no obvious abnormality, measuring 2.6 cm long axis.. TRANSVAGINAL SCAN Uterus: * Size (in centimeters): 4.7 transverse by 7.6 longitudinal by 3.9 AP * Appearance: No evidence of mass. * Endometrium: 8 mm endometrial stripe thickness. Patient has an intrauterine device. Right ovary: * Size: 5.7 cm long axis. * Blood flow: Intact * Appearance: Simple appearing cyst measures 3.3 cm. Another lesion measuring 3.1 cm demonstrates low-level internal echoes, most likely a hemorrhagic or otherwise complex cyst. No significant hypervascularity. Left ovary: * Size: 2.4 cm long axis. * Blood flow: Intact * Appearance: No significant mass. Free fluid: Mild simple appearing free fluid identified in the cul-de-sac. IMPRESSION: 1. Simple appearing 3.3 cm right ovarian cyst. 2. Another right ovarian lesion measures 3.1 cm, compatible with a hemorrhagic or otherwise complex cyst. Electronically signed by: Efren Monsalve MD (05/31/2018 2:07 PM) [facility]
[2018-05-31] MEDS ORDERED: TRAM-48 PO (14:29)
== END 2018-05-31 14:30 | disposition home or self-care (01) ==
LOC: ER 10:33
DX: N83.291 Other ovarian cyst, right side (principal); E66.01 Morbid (severe) obesity due to excess calories; I10 Essential (primary) hypertension; E03.9 Hypothyroidism, unspecified; Z68.41 Body mass index [BMI] 40.0-44.9, adult; Z87.891 Personal history of nicotine dependence; Z88.1 Allergy status to other antibiotic agents; Z91.040 Latex allergy status; Z88.8 Allergy status to other drugs, medicaments and biological substances; Z88.6 Allergy status to analgesic agent
CPT/HCPCS: 36415; 74177; 76830; 76856; 80053; 81001; 81025; 83690; 85025; 96374; 99285; J2270; Q9967; J7030

== ENCOUNTER → 2019-03-10 | Emergency (ER) | payer BC, OTHER ==
[~2019-03-10] VITALS: Ht 177.8 cm; Wt 142.9 kg
[~2019-03-10] MED LIST changes: +HYDR-3165 PO; -HYDR-971 PO; +IV NORMAL SALINE 50ML 50 ML ONE; +IV RINGERS SOLUTION,LACTATED 1,000 ML IV SCH; +MELO7.5T29 PO; +METO10TA81 PO; +MORPHINE SULFATE 10 MG/ML SYRINGE. SQ ONE; +ONDA8TAB9 PO; +ONDANSETRON PF 4 MG/2 ML VIAL. IV ONE; +SUMAtriptan SUCC 6 MG/0.5 ML VIAL SQ ONE; +TRAM-48 PO; +VALPROATE SODIUM 500 MG in IV NORMAL SALINE 50ML 50 ML IV STA; +VALPROATE SODIUM 500 MG/5 ML VIAL IV ONE; +diphenhydrAMINE 50 MG/ML VIAL IV ONE
--- NOTE | 2019-03-10 19:35 | ED.ADGEN ---
Past History Past Medical History: Bipolar, Diverticulitis, Hypertension, Hypothyroid, Migraines Additional Past Medical Histor: Umbilical hernia-(07/16/2013.) Cartilage removed from L Knee -02/2006. Past Surgical History: Cholecystectomy, Tonsillectomy, Other Additional Past Surgical Histo: Umbilical hernia repair 07/16/2013. Smoking: Cigarettes, Quit Greater Than 1 Year Alcohol Use: None Drug Use: None Adult General Chief Complaint Chief Complaint ". I am having one my my migraine ... that did not go away with my regular meds... It been mario constant the last 5 days.. Nausea.. lights.. noises.. getting to me... It like when I get really bad headache.. I have to come to ED for meds.. I took my migraine meds.. I have at home.. they helped.. but never got rid of the headache..." HPI HPI Patient is a 38 year old female who presents with migraine headache exacerbation. Patient denies any trauma. Patient denies any specific ill contacts. No recent travel. No history of fever or chills. No history immunosuppression. Patient does have some migraine headache meds but they did not completely relieve the headache. Patient states she has had migraines off and on and they are typical similar presentation , butt this headache was worse than usual. There is no family history of dotson aneurysms, CVAs, etc. Patient does smoke. Patient normally follows with Dr. Norberto Abebe. History of patient states she did have a normal CT years ago. Review of Systems Review of Systems Constitutional: Denies fever or chills [] Eyes: Denies change in visual acuity, redness, or eye pain []complaints of photophobia HENT: Denies nasal congestion or sore throat []complaints of acoustic sensitivity Respiratory: Denies cough or shortness of breath [] Cardiovascular: No additional information not addressed in HPI [] GI: Denies abdominal pain, vomiting, bloody stools or diarrhea []plains of nausea : Denies dysuria or hematuria [] Musculoskeletal: Denies back pain or joint pain [] Integument: Denies rash or skin lesions [] Neurologic: Complaints of headache, denies focal weakness or sensory changes [] Endocrine: Denies polyuria or polydipsia [] All other systems were reviewed and found to be within normal limits, except as documented in this note. Family History Family History Noncontributory Current Medications Current Medications Current Medications Medications (Trade) Dose Ordered Sig/Reza Start Time Stop Time Status Last Admin Dose Admin Diphenhydramine HCl (Benadryl) 50 mg 1X ONCE 03/10/19 20:15 03/10/19 20:16 DC 03/10/19 20:13 50 MG Lactated Ringer's 1,000 ml @ 1,000 mls/hr Q1H 03/10/19 20:00 03/10/19 20:59 DC 03/10/19 20:12 1,000 MLS/HR Morphine Sulfate (Morphine 10mg Syringe) 10 mg 1X ONCE 03/10/19 22:00 03/10/19 22:01 DC 03/10/19 21:55 10 MG Ondansetron HCl (Zofran) 8 mg 1X ONCE 03/10/19 20:15 03/10/19 20:16 DC 03/10/19 20:22 8 MG Sodium Chloride 50 ml @ As Directed STK-MED ONCE 03/10/19 20:07 03/10/19 20:08 DC Sumatriptan Succinate (Imitrex) 6 mg 1X ONCE 03/10/19 22:00 03/10/19 22:01 DC 03/10/19 21:55 6 MG Valproic Acid (Depacon) 500 mg STK-MED ONCE 03/10/19 20:07 03/10/19 20:08 DC Valproic Acid 500 mg/Sodium Chloride 55 ml @ 55 mls/hr 1X STAT 03/10/19 19:42 03/10/19 20:41 DC 03/10/19 20:27 55 MLS/HR Allergies Allergies Allergies Coded Allergies Type Severity Reaction Last Updated Verified clarithromycin Allergy Mild rash 03/09/15 Yes latex Allergy Mild rash 03/09/15 Yes sulfamethoxazole Allergy Mild rash 03/09/15 Yes tobramycin Allergy Mild unknown 03/09/15 Yes trimethoprim Allergy Mild rash 03/09/15 Yes promethazine HCl Adverse Reaction Mild nausea/vomiting 03/09/15 Yes NSAIDS (Non-Steroidal Anti-Inflamma Adverse Reaction Unknown 12/01/15 Yes Physical Exam Physical Exam Constitutional:Moderate acute distress, non-toxic appearance. [] HENT: Normocephalic, atraumatic, bilateral external ears normal, oropharynx moist, no oral exudates, nose normal. [] Eyes: PERRLA, EOMI, conjunctiva normal, no discharge. [] Neck: Normal range of motion, no tenderness, supple, no stridor. [] Cardiovascular:Heart rate regular rhythm, no murmur [] Lungs & Thorax: Bilateral breath sounds equal at apexes with scattered wheezes on auscultation [] Abdomen: Bowel sounds normal, soft, no tenderness, no masses, no pulsatile masses. [] Obese. Old surgery scars. Skin: Warm, dry, no erythema, no rash. [] Back: No tenderness, no CVA tenderness. [] Extremities: No tenderness, no cyanosis, no clubbing, ROM intact, no edema. [] Neurologic: Alert and oriented X 3, normal motor function, normal sensory function, no focal deficits noted. []DTR's =2 patella and brachial. No drift. Ambulatory with out problems. Distal sensory 128. Psychologic: Affect normal, judgement normal, mood normal. [] Current Patient Data Vital Signs Vital Signs Date Time Temp Pulse Resp B/P (MAP) Pulse Ox O2 Delivery O2 Flow Rate FiO2 03/10/19 21:55 18 100 Room Air 03/10/19 21:07 63 121/78 (92) 03/10/19 20:00 97.7 Lab Results Laboratory Tests Test 03/10/19 20:00 03/10/19 20:15 03/10/19 20:53 03/10/19 21:04 White Blood Count 9.7 x10^3/uL (4.0-11.0) Red Blood Count 4.99 x10^6/uL (3.50-5.40) Hemoglobin 15.0 g/dL (12.0-15.5) Hematocrit 45.2 % (36.0-47.0) Mean Corpuscular Volume 91 fL (79-100) Mean Corpuscular Hemoglobin 30 pg (25-35) Mean Corpuscular Hemoglobin Concent 33 g/dL (31-37) Red Cell Distribution Width 14.0 % (11.5-14.5) Platelet Count 208 x10^3/uL (140-400) Neutrophils (%) (Auto) 69 % (31-73) Lymphocytes (%) (Auto) 23 % (24-48) L Monocytes (%) (Auto) 4 % (0-9) Eosinophils (%) (Auto) 3 % (0-3) Basophils (%) (Auto) 1 % (0-3) Neutrophils # (Auto) 6.7 x10^3uL (1.8-7.7) Lymphocytes # (Auto) 2.2 x10^3/uL (1.0-4.8) Monocytes # (Auto) 0.4 x10^3/uL (0.0-1.1) Eosinophils # (Auto) 0.3 x10^3/uL (0.0-0.7) Basophils # (Auto) 0.1 x10^3/uL (0.0-0.2) Erythrocyte Sedimentation Rate 29 (0-25) H POC Urine HCG, Qualitative hcg negative (Negative) Prothrombin Time 9.8 SEC (9.4-11.4) Prothrombin Time INR 0.9 (0.9-1.1) PTT 28 SEC (23-33) Sodium Level 143 mmol/L (136-145) Potassium Level 3.4 mmol/L (3.5-5.1) L Chloride Level 104 mmol/L (98-107) Carbon Dioxide Level 30 mmol/L (21-32) Anion Gap 9 (6-14) Blood Urea Nitrogen 19 mg/dL (7-20) Creatinine 0.8 mg/dL (0.6-1.0) Estimated GFR (Cockcroft-Gault) 79.9 Glucose Level 91 mg/dL (70-99) Calcium Level 9.8 mg/dL (8.5-10.1) Total Bilirubin 0.2 mg/dL (0.2-1.0) Direct Bilirubin 0.1 mg/dL (0.0-0.2) Aspartate Amino Transferase (AST) 18 U/L (15-37) Alanine Aminotransferase (ALT) 35 U/L (14-59) Alkaline Phosphatase 100 U/L (46-116) Total Protein 7.9 g/dL (6.4-8.2) Albumin 3.9 g/dL (3.4-5.0) Urine Collection Type Unknown Urine Color Yellow Urine Clarity Hazy Urine pH 6.0 Urine Specific [place] >=1.030 Urine Protein Neg (NEG-TRACE) Urine Glucose (UA) Neg mg/dL (NEG) Urine Ketones (Stick) Neg mg/dL (NEG) Urine Blood Trace (NEG) Urine Nitrite Neg (NEG) Urine Bilirubin Neg (NEG) Urine Urobilinogen Dipstick 0.2 mg/dL (0.2 mg/dL) Urine Leukocyte Esterase Neg (NEG) Urine RBC 1-2 /HPF (0-2) Urine WBC 1-4 /HPF (0-4) Urine Squamous Epithelial Cells Occ /LPF Urine Bacteria 0 /HPF (0-FEW) Urine Mucus Mod /LPF Urine Opiates Screen Neg (NEG) Urine Methadone Screen Neg (NEG) Urine Barbiturates Neg (NEG) Urine Phencyclidine Screen Neg (NEG) Urine Amphetamine/Methamphetamine Neg (NEG) Urine Benzodiazepines Screen Neg (NEG) Urine Cocaine Screen Neg (NEG) Urine Cannabinoids Screen Pos (NEG) Urine Ethyl Alcohol Neg (NEG) EKG EKG My interpretation EKG shows a sinus rhythm at 67 bpm. There is some nonspecific contour changes anterior septal leads. But no findings acute STEMI with contralateral changes.[] Radiology/Procedures Radiology/Procedures [][place] [id number] IMAGING REPORT Signed PATIENT: LOGAN CHOE ACCOUNT: [id number] : 1980 LOCATION: ER AGE: 38 SEX: F EXAM STATUS: REG ER ORD. PHYSICIAN: PRIYANK KANG MD REASON: Headache, hx migraines.Patient shielded PROCEDURE: CT HEAD WO CONTRAST PQRS Compliance statement: One or more of the following individualized dose reduction techniques were utilized for this examination: 1. Automated exposure control. 2. Adjustment of the mA and/or kV according to patient size. 3. Use of iterative reconstruction technique. Indication:Headache. History of migraines. TECHNIQUE: CT head without IV contrast COMPARISON:09/22/2017 FINDINGS: No pathologic extra-axial or intra-axial fluid collection. The ventricles and basal cisterns are within normal limits. No acute intracranial bleed. No focal loss of padilla-white differentiation. Orbits are within normal limits. No suspicious calvarial lesion. Visualized paranasal sinuses and mastoid air cells are clear. IMPRESSION: 1. No acute intracranial process on this noncontrast CT. If concern for acute ischemic stroke is high, please consider MRI brain. Electronically signed by: Bahman Anderson DO (03/10/2019 8:31 PM) [facility] DICTATED AND SIGNED BY: BAHMAN ANDERSON DO DATE: 03/10/192030 CC: PRIYANK KANG MD; ALEJANDRA STRINGER MD ~ Course & Med Decision Making Course & Med Decision Making Pertinent Labs and Imaging studies reviewed. (See chart for details) Patient take Tylenol and ibuprofen needed for pain. Patient resumed her migraine headache meds as previous directed. Patient recommended follow-up with neurology. Patient return if any concerns. Patient currently declines spinal tap benefits and complications discussed. Pt. encourage to stop smoking. [] Final Impression Final Impression 1. Migraine Hx. [] 2. Tobacco and Marijuana use 3. Elevated sedimentation rate =29 Dragon Disclaimer Dragon Disclaimer This electronic medical record was generated, in whole or in part, using a voice recognition dictation system. Discharge Summary Visit Information Final Diagnosis Problems Medical Problems: (1) Migraine Status: Acute Brief Hospital Course Allergies Allergies Coded Allergies Type Severity Reaction Last Updated Verified clarithromycin Allergy Mild rash 03/09/15 Yes latex Allergy Mild rash 03/09/15 Yes sulfamethoxazole Allergy Mild rash 03/09/15 Yes tobramycin Allergy Mild unknown 03/09/15 Yes trimethoprim Allergy Mild rash 03/09/15 Yes promethazine HCl Adverse Reaction Mild nausea/vomiting 03/09/15 Yes NSAIDS (Non-Steroidal Anti-Inflamma Adverse Reaction Unknown 12/01/15 Yes Vital Signs Vital Signs Date Time Temp Pulse Resp B/P (MAP) Pulse Ox O2 Delivery O2 Flow Rate FiO2 03/10/19 21:55 18 100 Room Air 03/10/19 21:07 63 121/78 (92) 03/10/19 20:00 97.7 Lab Results Laboratory Tests Test 03/10/19 20:00 03/10/19 20:15 03/10/19 20:53 03/10/19 21:04 White Blood Count 9.7 x10^3/uL (4.0-11.0) Red Blood Count 4.99 x10^6/uL (3.50-5.40) Hemoglobin 15.0 g/dL (12.0-15.5) Hematocrit 45.2 % (36.0-47.0) Mean Corpuscular Volume 91 fL (79-100) Mean Corpuscular Hemoglobin 30 pg (25-35) Mean Corpuscular Hemoglobin Concent 33 g/dL (31-37) Red Cell Distribution Width 14.0 % (11.5-14.5) Platelet Count 208 x10^3/uL (140-400) Neutrophils (%) (Auto) 69 % (31-73) Lymphocytes (%) (Auto) 23 % (24-48) Monocytes (%) (Auto) 4 % (0-9) Eosinophils (%) (Auto) 3 % (0-3) Basophils (%) (Auto) 1 % (0-3) Neutrophils # (Auto) 6.7 x10^3uL (1.8-7.7) Lymphocytes # (Auto) 2.2 x10^3/uL (1.0-4.8) Monocytes # (Auto) 0.4 x10^3/uL (0.0-1.1) Eosinophils # (Auto) 0.3 x10^3/uL (0.0-0.7) Basophils # (Auto) 0.1 x10^3/uL (0.0-0.2) Erythrocyte Sedimentation Rate 29 (0-25) Bedside Urine HCG, Qualitative hcg negative (Negative) Prothrombin Time 9.8 SEC (9.4-11.4) Prothromb Time International Ratio 0.9 (0.9-1.1) Activated Partial Thromboplast Time 28 SEC (23-33) Sodium Level 143 mmol/L (136-145) Potassium Level 3.4 mmol/L (3.5-5.1) Chloride Level 104 mmol/L (98-107) Carbon Dioxide Level 30 mmol/L (21-32) Anion Gap 9 (6-14) Blood Urea Nitrogen 19 mg/dL (7-20) Creatinine 0.8 mg/dL (0.6-1.0) Estimated GFR (Cockcroft-Gault) 79.9 Glucose Level 91 mg/dL (70-99) Calcium Level 9.8 mg/dL (8.5-10.1) Total Bilirubin 0.2 mg/dL (0.2-1.0) Direct Bilirubin 0.1 mg/dL (0.0-0.2) Aspartate Amino Transf (AST/SGOT) 18 U/L (15-37) Alanine Aminotransferase (ALT/SGPT) 35 U/L (14-59) Alkaline Phosphatase 100 U/L (46-116) Total Protein 7.9 g/dL (6.4-8.2) Albumin 3.9 g/dL (3.4-5.0) Urine Collection Type Unknown Urine Color Yellow Urine Clarity Hazy Urine pH 6.0 Urine Specific [place] >=1.030 Urine Protein Neg (NEG-TRACE) Urine Glucose (UA) Neg mg/dL (NEG) Urine Ketones (Stick) Neg mg/dL (NEG) Urine Blood Trace (NEG) Urine Nitrite Neg (NEG) Urine Bilirubin Neg (NEG) Urine Urobilinogen Dipstick 0.2 mg/dL (0.2 mg/dL) Urine Leukocyte Esterase Neg (NEG) Urine RBC 1-2 /HPF (0-2) Urine WBC 1-4 /HPF (0-4) Urine Squamous Epithelial Cells Occ /LPF Urine Bacteria 0 /HPF (0-FEW) Urine Mucus Mod /LPF Urine Opiates Screen Neg (NEG) Urine Methadone Screen Neg (NEG) Urine Barbiturates Neg (NEG) Urine Phencyclidine Screen Neg (NEG) Urine Amphetamine/Methamphetamine Neg (NEG) Urine Benzodiazepines Screen Neg (NEG) Urine Cocaine Screen Neg (NEG) Urine Cannabinoids Screen Pos (NEG) Urine Ethyl Alcohol Neg (NEG) Brief Hospital Course Ms. Choe is a 38 old female who presented with migraine headache. Discharge Information Condition at Discharge: Improved, Stable Disposition/Orders: D/C to Home Dischare Medications Current Medications Lactated Ringer's 1,000 ml @ 1,000 mls/hr Q1H IV Last administered on 03/10/19at 20:12; Admin Dose 1,000 MLS/HR; Start 03/10/19 at 20:00; Stop 03/10/19 at 20:59; Status DC Diphenhydramine HCl (Benadryl) 50 mg 1X ONCE IV Last administered on 03/10/19at 20:13; Admin Dose 50 MG; Start 03/10/19 at 20:15; Stop 03/10/19 at 20:16; Status DC Ondansetron HCl (Zofran) 8 mg 1X ONCE IV Last administered on 03/10/19at 20:22; Admin Dose 8 MG; Start 03/10/19 at 20:15; Stop 03/10/19 at 20:16; Status DC Valproic Acid 500 mg/Sodium Chloride 55 ml @ 55 mls/hr 1X STAT IV Last administered on 03/10/19at 20:27; Admin Dose 55 MLS/HR; Start 03/10/19 at 19:42; Stop 03/10/19 at 20:41; Status DC Sodium Chloride 50 ml @ As Directed STK-MED ONCE .ROUTE ; Start 03/10/19 at 20:07; Stop 03/10/19 at 20:08; Status DC Valproic Acid (Depacon) 500 mg STK-MED ONCE IV ; Start 03/10/19 at 20:07; Stop 03/10/19 at 20:08; Status DC Sumatriptan Succinate (Imitrex) 6 mg 1X ONCE SQ Last administered on 03/10/19at 21:55; Admin Dose 6 MG; Start 03/10/19 at 22:00; Stop 03/10/19 at 22:01; Status DC Morphine Sulfate (Morphine 10mg Syringe) 10 mg 1X ONCE SQ Last administered on 03/10/19at 21:55; Admin Dose 10 MG; Start 03/10/19 at 22:00; Stop 03/10/19 at 22:01; Status DC Active Scripts Active Zofran (Ondansetron Hcl) 8 Mg Tablet 8 Mg PO QIDPRN PRN Ultram (Tramadol HCl) 50 Mg Tablet 50 Mg PO PRN Q6HRS PRN Benadryl (Diphenhydramine Hcl) 25 Mg Capsule 25 Mg PO QID 7 Days Mucinex Dm Er 1,200-60 Mg Tab (Guaifenesin/Dextromethorphan) 1 Each Tbmp.12hr 1 Tab PO BID Afrin (Oxymetazoline Hcl) 30 Ml [place] 30 Ml NS QID 3 Days Doxycycline Monohydrate 100 Mg Capsule 1 Cap PO BID [place] 5-325 Tablet (Hydrocodone Bit/Acetaminophen) 1 Each Tablet 1 Tab PO PRN Q6HRS PRN Prednisone 20 Mg Tablet 20 Mg PO BID Flagyl (Metronidazole) 500 Mg Tablet 500 Mg PO Q8HRS 7 Days Cipro (Ciprofloxacin Hcl) 500 Mg Tablet 1 Tab PO BID 7 Days [place] 5-325 Tablet (Hydrocodone Bit/Acetaminophen) 1 Each Tablet 1 Tab PO PRN Q6HRS PRN Reported Apriso (Mesalamine) 0.375 Gm Cap.er.24h 4 Cap PO DAILY Trileptal (Oxcarbazepine) 300 Mg Tablet 400 Mg PO BID Tizanidine Hcl (Tizanidine HCl) 4 Mg Tablet 4 Mg PO DAILY Synthroid (Levothyroxine Sodium) 50 Mcg Tablet 50 Mcg PO DAILY Bruno Disclaimer This chart was dictated in whole or in part using Voice Recognition software in a busy, high-work load, and often noisy Emergency Department environment. It may contain unintended and wholly unrecognized errors or omissions. PRIYANK KANG MD Mar 10, 2019 19:34
[2019-03-10 20:27] LABS: BASO # 0.1 x10^3/uL (0.0-0.2); BASO % 1 % (0-3); EOS # 0.3 x10^3/uL (0.0-0.7); EOS % 3 % (0-3); HEMATOCRIT 45.2 % (36.0-47.0); LYMPH # 2.2 x10^3/uL (1.0-4.8); LYMPH % 23 % (24-48); MEAN CORPUSCULAR HEMOGLOBIN 30 pg (25-35); MEAN CORPUSCULAR HGB CONC 33 g/dL (31-37); MEAN CORPUSCULAR VOLUME 91 fL (79-100); MONO # 0.4 x10^3/uL (0.0-1.1); MONO % 4 % (0-9); NEUT # 6.7 x10^3uL (1.8-7.7); NEUT % 69 % (31-73); PLATELET COUNT 208 x10^3/uL (140-400); RED BLOOD COUNT 4.99 x10^6/uL (3.50-5.40); WHITE BLOOD COUNT 9.7 x10^3/uL (4.0-11.0)
--- NOTE | 2019-03-10 20:35 | RAD ---
PQRS Compliance statement: One or more of the following individualized dose reduction techniques were utilized for this examination: 1. Automated exposure control. 2. Adjustment of the mA and/or kV according to patient size. 3. Use of iterative reconstruction technique. Indication:Headache. History of migraines. TECHNIQUE: CT head without IV contrast COMPARISON:09/22/2017 FINDINGS: No pathologic extra-axial or intra-axial fluid collection. The ventricles and basal cisterns are within normal limits. No acute intracranial bleed. No focal loss of padilla-white differentiation. Orbits are within normal limits. No suspicious calvarial lesion. Visualized paranasal sinuses and mastoid air cells are clear. IMPRESSION: 1. No acute intracranial process on this noncontrast CT. If concern for acute ischemic stroke is high, please consider MRI brain. Electronically signed by: Bahman Anderson DO (03/10/2019 8:31 PM) [facility]
[2019-03-10 21:25] LABS: AMPHETAMINE/METHAMPHETAMINE NEG (NEG)
[2019-03-10 21:26] LABS: BARBITURATES NEG (NEG); BENZODIAZEPINES NEG (NEG); CANNABINOIDS POS (NEG); COCAINE NEG (NEG); METHADONE NEG (NEG); OPIATES NEG (NEG); PHENCYCLIDINE NEG (NEG)
[2019-03-10 21:32] LABS: SEDIMENTATION RATE 29 (0-25)
[2019-03-10 21:37] LABS: BILIRUBIN,URINE NEG (NEG); CLARITY,URINE HAZY; COLOR,URINE YELLOW; GLUCOSE,URINE NEG (NEG)
[2019-03-10 21:38] LABS: BACTERIA,URINE 0 /HPF (0-FEW); NITRITE,URINE NEG (NEG); SQUAMOUS EPITHELIAL CELL,UR OCC /LPF; UROBILINOGEN,URINE 0.2 mg/dL (0.2 mg/dL)
[2019-03-10 21:45] LABS: ALBUMIN 3.9 g/dL (3.4-5.0); CALCIUM 9.8 mg/dL (8.5-10.1); CREATININE 0.8 mg/dL (0.6-1.0); GFR 79.9; TOTAL BILIRUBIN 0.2 mg/dL (0.2-1.0); TOTAL PROTEIN 7.9 g/dL (6.4-8.2)
[2019-03-10 21:46] LABS: DIRECT BILIRUBIN 0.1 mg/dL (0.0-0.2); POTASSIUM 3.4 mmol/L (3.5-5.1)
[2019-03-10 22:30] VITALS: BP 140/93
--- NOTE | 2019-03-11 14:23 | EKG ---
[address] [address] Test Date: 2019-03-10 Test Time: 21:43:52 Pat Name: LOGAN CHOE Department: Room: Gender: F [employer] Folding Machine Operator: LUMA : 1980 Requested By: PRIYANK KANG Order Number: [id number] Reading MD: Measurements Intervals [place] Rate: 67 P: 31 SD: 160 QRS: 42 QRSD: 104 T: 43 QT: 400 QTc: 426 Interpretive Statements SINUS RHYTHM QRS(T) CONTOUR ABNORMALITY CONSIDER ANTEROSEPTAL MYOCARDIAL DAMAGE POSSIBLY ABNORMAL ECG RI6.01 No previous ECG available for comparison
== END ==
LOC: ER 19:31
DX: G43.909 Migraine, unspecified, not intractable, without status migrainosus (principal); R70.0 Elevated erythrocyte sedimentation rate; I10 Essential (primary) hypertension; E03.9 Hypothyroidism, unspecified; F12.90 Cannabis use, unspecified, uncomplicated; Z87.891 Personal history of nicotine dependence; Z88.8 Allergy status to other drugs, medicaments and biological substances; Z88.1 Allergy status to other antibiotic agents; Z88.2 Allergy status to sulfonamides; Z88.6 Allergy status to analgesic agent; Z91.040 Latex allergy status
CPT/HCPCS: 36415; 70450; 80048; 80076; 80307; 81001; 81025; 85025; 85610; 85651; 85730; 93005; 96365; 96372; 96375; 99285; J1200; J2270; J2405; J3030; J3490; J7120

== ENCOUNTER 2019-03-11 08:15 | Emergency (ER) | payer BC ==
[~2019-03-11] VITALS: Ht 177.8 cm; Wt 143.0 kg
[~2019-03-11 08:15] MED LIST changes: -IV NORMAL SALINE 50ML 50 ML ONE; -IV RINGERS SOLUTION,LACTATED 1,000 ML IV SCH; -MELO7.5T29 PO; -METO10TA81 PO; -MORPHINE SULFATE 10 MG/ML SYRINGE. SQ ONE; -ONDANSETRON PF 4 MG/2 ML VIAL. IV ONE; -SUMAtriptan SUCC 6 MG/0.5 ML VIAL SQ ONE; -VALPROATE SODIUM 500 MG in IV NORMAL SALINE 50ML 50 ML IV STA; -VALPROATE SODIUM 500 MG/5 ML VIAL IV ONE; -diphenhydrAMINE 50 MG/ML VIAL IV ONE
--- NOTE | 2019-03-11 08:52 | PHYS DOC ---
Past History Past Medical History: Bipolar, Diverticulitis, Fibromyalgia, Hypertension, Hypothyroid, Migraines Additional Past Medical Histor: Umbilical hernia-(07/16/2013.) Cartilage removed from L Knee -02/2006. Past Surgical History: Cholecystectomy, Tonsillectomy, Other Additional Past Surgical Histo: Umbilical hernia repair 07/16/2013. Smoking: Cigarettes, Quit Greater Than 1 Year Alcohol Use: Rarely Drug Use: Marijuana Adult General Chief Complaint Chief Complaint: HEADACHE HPI HPI Patient is a 38-year-old female who presents with a headache like her usual migraine however a little bit worse and lasting a little bit longer than usual. This particular headache has been present for the past 6 days. She was seen in the emergency department last night and had an extensive workup and discharged to home. She reports that her headache was improved last night but reoccurred again on waking this morning. There is photophobia. No relief with her home medicines. Reports the pain is moderate to severe in intensity. Denies any fever. Reports some nausea but no vomiting.[] Review of Systems Review of Systems Constitutional: Denies fever or chills [] Eyes: Denies change in visual acuity, redness, or eye pain [] HENT: Denies nasal congestion or sore throat [] Respiratory: Denies cough or shortness of breath [] Cardiovascular: No chest pain or palpitations HPI [] GI: Denies abdominal pain, nausea, vomiting, bloody stools or diarrhea [] : Denies dysuria or hematuria [] Musculoskeletal: Denies back pain or joint pain [] Integument: Denies rash or skin lesions [] Neurologic: Denies focal weakness or sensory changes, see history of present illness [] Endocrine: Denies polyuria or polydipsia [] All other systems were reviewed and found to be within normal limits, except as documented in this note. Allergies Allergies Allergies Coded Allergies Type Severity Reaction Last Updated Verified clarithromycin Allergy Mild rash 03/09/15 Yes latex Allergy Mild rash 03/09/15 Yes sulfamethoxazole Allergy Mild rash 03/09/15 Yes tobramycin Allergy Mild unknown 03/09/15 Yes trimethoprim Allergy Mild rash 03/09/15 Yes promethazine HCl Adverse Reaction Mild nausea/vomiting 03/09/15 Yes NSAIDS (Non-Steroidal Anti-Inflamma Adverse Reaction Unknown 12/01/15 Yes Physical Exam Physical Exam Constitutional: Well developed, well nourished, mild discomfort, laying in a darkened room, non-toxic appearance. [] HENT: Normocephalic, atraumatic, bilateral external ears normal, oropharynx moist, no oral exudates, nose normal. [] Eyes: PERRLA, EOMI, conjunctiva normal, no discharge. [] Neck: Normal range of motion, no tenderness, supple, no stridor. No nuchal rigidity[] Cardiovascular:Heart rate regular rhythm, no murmur [] Lungs & Thorax: Bilateral breath sounds clear to auscultation [] Abdomen: Not examined[] Skin: Warm, dry, no erythema, no rash. [] Back: No tenderness, no CVA tenderness. [] Extremities: No tenderness, no cyanosis, no clubbing, ROM intact, no edema. [] Neurologic: Alert and oriented X 3, normal motor function, normal sensory function, no focal deficits noted. Normal gait, normal rapid repetitive and alternating movements[] Psychologic: Affect normal, judgement normal, mood normal. [] Current Patient Data Vital Signs Vital Signs Date Time Temp Pulse Resp B/P (MAP) Pulse Ox O2 Delivery O2 Flow Rate FiO2 03/11/19 08:18 98.6 74 18 99 Room Air EKG EKG [] Radiology/Procedures Radiology/Procedures [] Course & Med Decision Making Course & Med Decision Making Pertinent Labs and Imaging studies reviewed. (See chart for details) ED course: Patient arrived, was placed in bed, and tolerated exam well. Records were reviewed from last night. Note is made of the CT scan from last night that showed no acute intracranial process. Laboratory testing was reviewed and note her urine toxicology screen was positive for cannabinoids despite her telling me in her history that she does not use any recreational drugs. Discussion with e patient reveals that she is not allergic to NSAIDs. We will attempt those along with antiemetics that have affect on the dopamine pathways to help with this particular headache. Patient became upset because she felt the staff was not sympathetic enough to her needs. Explained to the patient that charting and orders have to be placed in the computer. 0935 some pain improvement was made with the medications given Medical decision making: There is no evidence of meningitis, encephalitis, intractable migraine, stroke syndrome, mass or bleed.[] Dragon Disclaimer Dragon Disclaimer This electronic medical record was generated, in whole or in part, using a voice recognition dictation system. Departure Departure: Impression: Primary Impression: Migraine Disposition: 01 HOME, SELF-CARE Condition: IMPROVED Referrals: ALEJANDRA STRINGER MD (PCP) Follow-up in 2 days Patient Instructions: Recurrent Migraine Headache Additional Instructions: Drink plenty of fluids. At the onset of your next migraine, dissolve 1/4 teaspoon of napoleon in apple juice or water and drink it all at once. Follow-up with your regular doctor in 2 days. Call tomorrow to set the appointment. Return to the ER if worsening pain, unable to tolerate medication, or any other concerns. Scripts Metoclopramide Hcl (REGLAN) 10 Mg Tablet 10 MG PO QID for nausea, vomiting, or migraine, #30 TAB Prov: LENY DONNELLY DO 03/11/19 Meloxicam (MELOXICAM) 7.5 Mg Tablet 7.5 MG PO DAILY for PAIN, #20 TAB Prov: LENY DONNELLY DO 03/11/19 Problem Qualifiers Primary Impression: Migraine Migraine type: unspecified Status migrainosus presence: without status migrainosus Intractability: not intractable Qualified Codes: G43.909 - Migraine, unspecified, not intractable, without status migrainosus LENY DONNELLY DO Mar 11, 2019 08:52
[2019-03-11] MEDS ORDERED: METOCLOPRAMIDE HCL 10 MG/2 ML VIAL. IM ONE (09:10)
[2019-03-11] MEDS ORDERED: diphenhydrAMINE 50 MG/ML VIAL IM ONE (09:10)
[2019-03-11] MEDS ORDERED: KETOROLAC 30 MG/ML VIAL. IM ONE (09:10)
[2019-03-11 09:30] VITALS: BP 134/88
[2019-03-11] MEDS ORDERED: METO10TA81 PO (09:46)
[2019-03-11] MEDS ORDERED: MELO7.5T29 PO (09:46)
== END 2019-03-11 09:50 | disposition home or self-care (01) ==
LOC: ER 08:15
DX: G43.909 Migraine, unspecified, not intractable, without status migrainosus (principal); M79.7 Fibromyalgia; I10 Essential (primary) hypertension; E03.9 Hypothyroidism, unspecified; Z87.891 Personal history of nicotine dependence; Z88.1 Allergy status to other antibiotic agents; Z91.040 Latex allergy status; Z88.2 Allergy status to sulfonamides; Z88.6 Allergy status to analgesic agent; Z88.8 Allergy status to other drugs, medicaments and biological substances
CPT/HCPCS: 96372; 99284; J1200; J1885; J2765

== ENCOUNTER 2021-07-07 21:35 | Emergency (ER) | payer BC, OTHER ==
[~2021-07-07] VITALS: Ht 177.8 cm; Wt 130.0 kg
[~2021-07-07 21:35] MED LIST changes: +DOXY-181 PO; -DOXY100C14 PO; +MELO7.5T29 PO; +METO10TA81 PO; -OXYM30SP NS; +OXYM30SP25 NS; +TIZA-75 PO; -TIZA4TAB PO
--- NOTE | 2021-07-07 21:45 | PHYS DOC ---
Past History Past Medical History: Bipolar, Diverticulitis, Fibromyalgia, Hypertension, Hypothyroid, Migraines Additional Past Medical Histor: Umbilical hernia-(07/16/2013.) Cartilage removed from L Knee -02/2006. Past Surgical History: Cholecystectomy, Tonsillectomy, Other Additional Past Surgical Histo: Umbilical hernia repair 07/16/2013. Smoking: Cigarettes, Quit Greater Than 1 Year Alcohol Use: Rarely Drug Use: Marijuana General Adult EDM: Chief Complaint: ABDOMINAL PAIN HPI: HPI: ".. I have been hurting all day... Down here on the right... Even hurts to walk.... I have had a mild to get things... My umbilicus hernia repair... Diverticulitis, ovarian cyst...... this just feels different. I did need any bad food all ahead with some soup and rice about 2 hours ago... This made the pain worse..." Patient is a 40 year old FEMALE who presents with above hx and complaints of abdomen pain. Patient localizes pain in right lower quadrant. Does have a rebound to right lower quadrant does have positive psoas sign on right. No flank pain on percussion. Patient poorly had a normal stool today. Patient has had both Covid vaccinations. No recent travel. No history of bad food intake. No specific ill contacts. No history of trauma. Patient denies any vaginal discharge or worries of STD. Does have significant history of frequent ED evaluations for abdomen pain. Patient has past medical history of umbilicus hernia, cholecystectomy, irritable bowel syndrome, constipation, fibromyalgia, diverticulitis, bipolar disorder, anxiety, hypothyroidism, epistaxis, UTIs, and ovarian cyst. Patient only follows with Dr Thornton in [facility]. Review of Systems: Review of Systems: Constitutional: Denies fever or chills Eyes: Denies change in visual acuity HENT: Denies nasal congestion or sore throat Respiratory: Denies cough or shortness of breath Cardiovascular: Denies chest pain or edema GI: Denies abdominal pain, nausea, vomiting, bloody stools or diarrhea : Denies dysuria Musculoskeletal: Denies back pain or joint pain Integument: Denies rash Neurologic: Denies headache, focal weakness or sensory changes Endocrine: Denies polyuria or polydipsia Lymphatic: Denies swollen glands Psychiatric: Denies depression or anxiety Family History: Family History: Noncontributory to presentation. Current Medications: Current Meds: See nursing for home meds Allergies: Allergies: Allergies Coded Allergies Type Severity Reaction Last Updated Verified clarithromycin Allergy Mild rash 03/09/15 Yes latex Allergy Mild rash 03/09/15 Yes sulfamethoxazole Allergy Mild rash 03/09/15 Yes tobramycin Allergy Mild unknown 03/09/15 Yes trimethoprim Allergy Mild rash 03/09/15 Yes promethazine HCl Adverse Reaction Mild nausea/vomiting 03/09/15 Yes NSAIDS (Non-Steroidal Anti-Inflamma Adverse Reaction Unknown 12/01/15 Yes Physical Exam: PE: Constitutional: Moderate acute distress, non-toxic appearance. [] HENT: Normocephalic, atraumatic, bilateral external ears normal, oropharynx moist, no oral exudates, nose normal. [] Eyes: PERRLA, EOMI, conjunctiva normal, no discharge. [] Neck: Normal range of motion, no tenderness, supple, no stridor. [] Cardiovascular:Heart rate regular rhythm, no murmur [] Lungs & Thorax: Bilateral breath sounds equal apex but some basilar crackles on auscultation [] Abdomen: Bowel sounds normal, soft, right lower quadrant tenderness, no masses, no pulsatile masses. Re Bound to right lower quadrant. Old surgical scars. Obese. Very distended. ( Pt declined pelvic exam at this time) Skin: Warm, dry, no erythema, no rash. [] Back: No tenderness, no CVA tenderness. [] Extremities: No tenderness, no cyanosis, no clubbing, ROM intact, no edema. [] Mild psoas or heel tap sign on right. No cording appreciated. Neurologic: Alert and oriented X 3, normal motor function, normal sensory function, no focal deficits noted. [] Psychologic: Affect anxious, judgement normal, mood normal. [] EKG: EKG: My interpretation EKG shows a sinus rhythm at 73 bpm. Left axis changes. But no findings of acute STEMI of contralateral changes. Time of this EKG is 2259 hrs. Radiology/Procedures: Radiology/Procedures: [address] [address] IMAGING REPORT Signed PATIENT: LOGAN CHOE NACCOUNT: [id number] : 1980 LOCATION: ER AGE: 40 SEX: F EXAM STATUS: REG ER ORD. PHYSICIAN: PRIYANK KANG MD REASON: abdomen pain PROCEDURE: ACUTE ABDOMEN SERIES EXAM: 2 VIEW ABDOMEN WITH ONE VIEW CHEST. HISTORY: Abdominal pain. COMPARISON: None. FINDINGS: A frontal view of the chest and supine/upright views of the abdomen are obtained. There are no confluent infiltrates. There is no pneumothorax or pleural effus ion. The heart is not enlarged. There is no pneumoperitoneum. There are no distended small bowel loops or significant air-fluid levels. There is gas distally. Cholecystectomy clips are noted. An intrauterine device is in expected position. IMPRESSION: 1. No confluent infiltrates. 2. No evidence of obstruction. Electronically signed by: Kathi López MD (07/07/2021 11:52 PM) [facility] DICTATED AND SIGNED BY: NIKKI LÓPEZ MD DATE: 07/07/21 3357 CC: PRIYANK KANG MD; ALEJANDRA THORNTON MD ~[facility] 0 [][place] [address] IMAGING REPORT Signed PATIENT: LOGAN CHOE NACCOUNT: [id number] : 1980 LOCATION: ER AGE: 40 SEX: F EXAM STATUS: REG ER ORD. PHYSICIAN: PRIYANK KANG MD REASON: abdomen pain Omni 300 75cc PROCEDURE: CT ABD PELV W/ORAL&IV CONTRAST CT OF THE ABDOMEN AND PELVIS WITH IV CONTRAST. History: Abdominal pain Comparison:May 31, 2018. Procedure: Contiguous axial images of the abdomen and pelvis were performed after the administration of 75 cc of Omni 300 IV contrast. Oral contrast: No. Findings: There has been prior cholecystectomy. The appendix is normal. There is an IUD well seated in the uterus. The ovaries appear normal. Liver: Unremarkable Spleen: Unremarkable Pancreas: Unremarkable Adrenal Glands: Unremarkable Kidneys: Unremarkable There is no mass or lymphadenopathy. There is no free air. There is no free fluid. The urinary bladder appears normal. Impression: No acute findings. End Impression PQRS Compliance Statement: One or more of the following individualized dose reduction techniques were utilized for this examination: 1. Automated exposure control 2. Adjustment of the mA and/or kV according to patient size 3. Use of iterative reconstruction technique Electronically signed by: Salvatore Chahal III, MD (07/07/2021 11:49 PM) [facility] DICTATED AND SIGNED BY: SALVATORE CHAHAL III, MD DATE: 07/07/21 9041 CC: PRIYANK KANG MD; ALEJANDRA THORNTON MD ~[facility]0 0 Heart Score: C/O Chest Pain: N/A Risk Factors: Risk Factors: DM, Current or recent (<one month) smoker, HTN, HLP, family history of CAD, obesity. Risk Scores: Score 0 - 3: 2.5% MACE over next 6 weeks - Discharge Home Score 4 - 6: 20.3% MACE over next 6 weeks - Admit for Clinical Observation Score 7 - 10: 72.7% MACE over next 6 weeks - Early Invasive Strategies Course & Med Decision Making: Course & Med Decision Making Pertinent Labs and Imaging studies reviewed. (See chart for details) Patient remain on clear fluid diet for the next 48 hours. No solids. No milk products clear fluids only. Must allow bowel rest. Take Tylenol and ibuprofen for pain. Reexam if no improvement next 48 hours. Follow-up primary care. Recommend consideration for a EGD and colonoscopy. Have primary review ED work- up. Return if any concerns. Impression: 1. Abdomen pain 2. Constipation 3. Past history of diverticulitis 4. Past history of anxiety 5. History of irritable bowel syndrome [] Dragon Disclaimer: Dragrome Disclaimer: This electronic medical record was generated, in whole or in part, using a voice recognition dictation system. Departure Departure: Referrals: ALEJANDRA THORNTON MD (PCP) Bruno Disclaimer This chart was dictated in whole or in part using Voice Recognition software in a busy, high-work load, and often noisy Emergency Department environment. It may contain unintended and wholly unrecognized errors or omissions. PRIYANK KANG MD Jul 07, 2021 21:45
[2021-07-07 21:50] VITALS: BP 139/77
[2021-07-07] MEDS ORDERED: MAGNESIUM HYDROXIDE 2,400 MG/30 ML ORAL.SUSP. PO ONE (22:00)
[2021-07-07] MEDS ORDERED: IOHEXOL 240 MG/ML 50ML VIAL. ONE (22:23)
[2021-07-07] MEDS ORDERED: IV RINGERS SOLUTION,LACTATED 1,000 ML IV SCH (22:45)
[2021-07-07] MEDS ORDERED: MORPHINE SULFATE 10 MG/ML SYRINGE. SQ ONE (22:45)
[2021-07-07] MEDS ORDERED: IOHEXOL 300 MG/ML 75 ML VIAL. IV ONE (22:45)
[2021-07-07] MEDS ORDERED: FAMOTIDINE 20 MG/2 ML VIAL IVP ONE (22:45)
[2021-07-07] MEDS ORDERED: ONDANSETRON PF 4 MG/2 ML VIAL. IVP ONE (22:45)
[2021-07-07] MEDS ORDERED: ONDANSETRON PF 4 MG/2 ML VIAL. ONE (22:55)
[2021-07-07] MEDS ORDERED: FAMOTIDINE 20 MG/2 ML VIAL ONE (22:55)
[2021-07-07 22:57] LABS: BASO % 0 % (0-3); CALCIUM 9.5 mg/dL (8.5-10.1); CREATININE 0.8 mg/dL (0.6-1.0); EOS # 0.2 x10^3/uL (0.0-0.7); EOS % 2 % (0-3); HEMATOCRIT 44.9 % (36.0-47.0); HEMOGLOBIN 15.1 g/dL (12.0-15.5); LYMPH % 29 % (24-48); MEAN CORPUSCULAR HEMOGLOBIN 32 pg (25-35); MEAN CORPUSCULAR HGB CONC 34 g/dL (31-37); MEAN CORPUSCULAR VOLUME 93 fL (79-100); MONO # 0.3 x10^3/uL (0.0-1.1); MONO % 3 % (0-9); NEUT # 6.7 x10^3uL (1.8-7.7); NEUT % 65 % (31-73); PLATELET COUNT 196 x10^3/uL (140-400); POTASSIUM 3.7 mmol/L (3.5-5.1); WHITE BLOOD COUNT 10.3 x10^3/uL (4.0-11.0)
[2021-07-07 23:03] LABS: ALBUMIN 3.8 g/dL (3.4-5.0); DIRECT BILIRUBIN 0.1 mg/dL (0.0-0.2); TOTAL BILIRUBIN 0.2 mg/dL (0.2-1.0); TOTAL PROTEIN 7.5 g/dL (6.4-8.2)
--- NOTE | 2021-07-07 23:52 | RAD ---
CT OF THE ABDOMEN AND PELVIS WITH IV CONTRAST. History: Abdominal pain Comparison:May 31, 2018. Procedure: Contiguous axial images of the abdomen and pelvis were performed after the administration of 75 cc o f Omni 300 IV contrast. Oral contrast: No. Findings: There has been prior cholecystectomy. The appendix is normal. There is an IUD well seated in the uterus. The ovaries appear normal. Liver: Unremarkable Spleen: Unremarkable Pancreas: Unremarkable Adrenal Glands: Unremarkable Kidneys: Unremarkable There is no mass or lymphadenopathy. There is no free air. There is no free fluid. The urinary bladder appears normal. Impression: No acute findings. End Impression PQRS Compliance Statement: One or more of the following individualized dose reduction techniques were utilized for this examinat ion: 1. Automated exposure control 2. Adjustment of the mA and/or kV according to patient size 3. Use of iterative reconstruction technique Electronically signed by: Darshan Beverly III, MD (07/07/2021 11:49 PM) [facility]
--- NOTE | 2021-07-07 23:55 | RAD ---
EXAM: 2 VIEW ABDOMEN WITH ONE VIEW CHEST. HISTORY: Abdominal pain. COMPARISON: None. FINDINGS: A frontal view of the chest and supine/upright views of the abdomen are obtained. There are no confluent infiltrates. There is no pneumothorax or pleural effusion. The heart is not en larged. There is no pneumoperitoneum. There are no distended small bowel loops or significant air-fluid level s. There is gas distally. Cholecystectomy clips are noted. An intrauterine device is in expected posi tion. IMPRESSION: 1. No confluent infiltrates. 2. No evidence of obstruction. Electronically signed by: Kathi López MD (07/07/2021 11:52 PM) [facility]
[2021-07-07 23:56] LABS: BACTERIA,URINE 0 /HPF (0-FEW); BILIRUBIN,URINE NEG (NEG); CLARITY,URINE CLEAR; COLOR,URINE YELLOW; GLUCOSE,URINE NEG (NEG); NITRITE,URINE NEG (NEG); RBC,URINE 0 /HPF (0-2); SQUAMOUS EPITHELIAL CELL,UR MOD /LPF; UROBILINOGEN,URINE 0.2 mg/dL (0.2 mg/dL); WBC,URINE OCC /HPF (0-4)
[2021-07-07 23:57] LABS: AMPHETAMINE/METHAMPHETAMINE NEG (NEG); BARBITURATES NEG (NEG); BENZODIAZEPINES NEG (NEG); CANNABINOIDS POS (NEG); COCAINE NEG (NEG); METHADONE NEG (NEG); OPIATES NEG (NEG); PHENCYCLIDINE NEG (NEG)
[2021-07-08] MEDS ORDERED: MAGNESIUM HYDROXIDE 2,400 MG/30 ML ORAL.SUSP. PO ONE (00:15)
--- NOTE | 2021-07-08 07:37 | EKG ---
[address] [address] Test Date: 2021-07-07 Test Time: 22:59:21 Pat Name: LOGAN CHOE Department: Room: Gender: F [employer] Maintainer: FRANCISCO : 1980 Requested By: PRIYANK KANG Order Number: [id number] Reading MD: Kel Pettit Measurements Intervals [place] Rate: 73 P: 30 WI: 162 QRS: -1 QRSD: 102 T: 15 QT: 382 QTc: 424 Interpretive Statements SINUS RHYTHM LEFTWARD AXIS Electronically Signed On 07-12-2021 9:32:13 [employer] by Kel Pettit
== END 2021-07-08 00:20 | disposition home or self-care (01) ==
LOC: ER 21:35
DX: K59.00 Constipation, unspecified (principal); F41.9 Anxiety disorder, unspecified; K58.9 Irritable bowel syndrome, unspecified; M79.7 Fibromyalgia; I10 Essential (primary) hypertension; G43.909 Migraine, unspecified, not intractable, without status migrainosus; E03.9 Hypothyroidism, unspecified; Z87.891 Personal history of nicotine dependence; F31.9 Bipolar disorder, unspecified; Z90.49 Acquired absence of other specified parts of digestive tract; Z88.1 Allergy status to other antibiotic agents; Z91.040 Latex allergy status; Z88.8 Allergy status to other drugs, medicaments and biological substances; Z88.6 Allergy status to analgesic agent
CPT/HCPCS: 36415; 74022; 74177; 80048; 80076; 80307; 81001; 81025; 82550; 83690; 85025; 93005; 96361; 96372; 96374; 96375; 99284; J2270; J2405; J3490; J7120; Q9967; 99285-25